=== PATIENT | female | born 1955 | race Caucasian/White ===

== ENCOUNTER → 2018-01-01 09:13 | Outpatient (CLI) | payer OTHER, SELFPAY ==
--- NOTE | 2018-01-01 09:15 | BI_ITS ---
MAMMOGRAPHY - BILATERAL SCREENING REASON FOR EXAM: Female, 62 years old. Routine annual screening examination. PERTINENT HISTORY: Non-contributory. TECHNIQUE: Digital bilateral breast taz (3D mammographic acquisition) in the CC and MLO projections. 2-D mediolateral oblique (MLO) and craniocaudad (CC) views of both breasts were obtained. CAD: Full Field Digital Mammography with Computer Added Detection was performed. COMPARISON: Comparison is made with prior study dated December 31, 2016 and January 25, 2016. FINDINGS: Breast Composition: There are scattered areas of fibroglandular density. There are no dominant masses or suspicious calcifications. No other significant abnormalities are identified. There has been no significant change since the prior study. BI/SCREENING MAMM (CAD), BILAT IMPRESSION: Stable bilateral screening mammogram. Yearly follow-up mammogram recommended. (A) ASSESSMENT CATEGORY: BIRADS Category 1: Negative. A letter regarding these results will be sent to the patient by the facility within 30 days. Approximately 10% of breast cancers are not detected by mammography. A normal mammogram should not delay biopsy of a clinically suspicious abnormality. [id number] Electronically Signed: Olegario Yang MD at 9:53 EDT Tel [phone], Service support ,
== END ==
PROVIDERS: Family Provider Internal Medicine; PCP Internal Medicine; Visit Provider Internal Medicine
DX: Z12.31 Encounter for screening mammogram for malignant neoplasm of breast (principal)
CPT/HCPCS: 77063; 77067

== ENCOUNTER → 2018-04-30 13:33 | Outpatient (CLI) | payer OTHER, SELFPAY ==
[2018-04-30 14:27] VITALS: BP 168/48; PULSE 59; RESP 14; O2SAT 100; BMI 25.0
--- NOTE | 2018-04-30 18:10 | CA.SCORE ---
Calcium Scoring Date of Study:: 04/30/18 Coronary Calcium Scoring: Coronary calcium score: 0.0 Conclusion: Coronary calcium score: 0.0 Results: The patient underwent high resolution CT imaging of the chest on 04/30/2018 with attention paid to the coronary arteries. The images were examined and analyzed for the presence and extent of coronary artery calcification using coronary calcium quantification software. The patient was boarded as tolerating the procedure well with no adverse complications. The coronary calcium score was reported at 0.0. Based upon pre-published reference tables/material a coronary calcium score of 0.0 would be considered to have less than 5% chance of presence of coronary artery disease and a very low cardiovascular disease risk. Impression: Coronary calcium score: 0.0 This note was generated with [employer] dictation software. It may contain incorrect words, spelling, and punctuation that were not noted in checking the note before signing.
== END ==
PROVIDERS: Family Provider Internal Medicine; PCP Internal Medicine; Visit Provider Internal Medicine
DX: E78.00 Pure hypercholesterolemia, unspecified (principal); R74.8 Abnormal levels of other serum enzymes; R79.89 Other specified abnormal findings of blood chemistry
CPT/HCPCS: 75571; 76380

== ENCOUNTER → 2018-09-23 08:59 | Outpatient (CLI) | payer MEDICARE, BC, SELFPAY ==
--- NOTE | 2018-09-23 09:04 | US_ITS ---
STUDY: ABDOMINAL ULTRASOUND -LIMITED REASON FOR VISIT: Female, 63 years old. Splenomegaly. TECHNIQUE: Ultrasound evaluation of the left upper quadrant was performed with real-time and static hernandez-scale imaging. TECHNICAL QUALITY: Adequate. COMPARISON: None available at the time of dictation. FINDINGS: Spleen measures 9.8 x 3.6 x 3.3 cm which is within normal limits. Normal echotexture. No masses. Left kidney measures 9.9 x 4.6 x 5.3 cm without hydronephrosis. Renal cortex 1.7 cm. No masses or cysts. US/Spleen IMPRESSION: Normal spleen. Normal left kidney. Electronically Signed: Eleuterio Beaver MD at 7:36 EST , Service support ,
--- OUTSIDE RECORDS SUMMARY | 2018-11-25 05:33 | XMS RPT_ITS | Continuity of Care Document ---
:1955 Author Organization [facility] Address [address] [place] [address] Phone Care Team Providers Name Role Phone Yolanda Gomez DO Unavailable Carla DILLON MD , Oseas Ramey Unavailable OLMAN King Unavailable Unavailable Hoa STONE, Rajani Camarillo Unavailable Chico Arizmendi Unavailable Unavailable Unavailable Unavailable Problems Name Dates Details Abnormal laboratory test (R89.9, 796.4) Comments: MPO and Vitamin b12 high so inflammation ADMA up so endothelial ;dysfucntion recommend CCTA and BV screening will check sed rate and labs. Status: Active Abnormal urine (R82.90, 791.9) Comments: little wbc and blood. will recheck next time no signs and symptoms or bacteria. ? vaginitis or caffiene willrecheck Status: Active BMI 25.0-25.9,adult (Z68.25, V85.21) Comments: 25.63 Status: Active BMI 26.0-26.9,adult (Z68.26, V85.22) Status: Active Carotid stenosis (I65.29, 433.10) Comments: 8-18 mild to moderate. needs aspirin and statin. Status: Active Current nonsmoker (Renamed from Current non-smoker) (Z78.9, V49.89) Comments: vegetarian Status: Active Dyspareunia in female (N94.10, 625.0) Comments: use coconut oil no estrogen cream with above if not work and BRCA negative then could consider estrogen cream. doing better Status: Active Encounter for general adult medical examination without abnormal findings (Z00.00, V70.9) Comments: 10-21-17:[facility] exam: pap 9-16 good recheck 3 years, flu up to date,tdap done. will get new shingles vaccine, mammoand BD=-, A1c=5.4%, BMI=25, Dweqcuzisqy=4248 (Karlos) re check 2019 myriad negative. recommend calcium 600 mg a day pneumovax and prevnar 13 at 63 yo. Hep C atb neg 10-18 Status: Active Encounter for gynecological examination with abnormal finding (Z01.411, V72.31) Comments: 10-22-16:[facility] exam: pap 9-16 good recheck 3 years, flu up to date, , mammo=-2016, BD=due 01-17, A1c=5.9%. MOCA=23/30, BMI=25.29, Dqqudriitbr=7469 (Karlos). recommedn calcium 600 mg a day pneu movax and prevnar 13 due. shjingrix told get at pharmacy. Hep C atb neg 10-18 Status: Active Family history of BRCA gene positive (Z84.81, V18.9) Comments: neg myriad genetics Status: Active Family history of dementia (Z81.8, V17.2) Comments: handout given Status: Active Family history of neoplasm of ovary (Z87.898, V18.7) Status: Active Hyperkalemia (E87.5, 276.7) Status: Active Mild hyperlipidemia (E78.5, 272.4) Comments: reveiwed with patient recent tests and better HDL LDL stillup with apoBelevated. ADMA slightlly up refuse statins switching over more whole grain.8-18 CCTA 0 carotids 8-18 mild to moderate. Status: Active Osteopenia (M85.80, 733.90) Comments: done - bd Status: Active Postmenopausal (Z78.0, V49.81) Status: Active Shoulder pain, left (M25.512, 719.41) Comments: in trapezius knot nsadis biofreeze neck stretches given. massage heat help if not better in 7-10 days to PT. will have family massage. Status: Active Vitamin D deficiency (E55.9, 268.9) Comments: better than was last year now just need otc vit D Status: Active Medications Name Dates Details Aspirin 81 MG Oral Tablet Delayed Release Active 1 qd (81 MG) Vitamin B12 1000 MCG Oral Tablet Extended Release 1 (one) Tablet Tablet daily for 0 days Quantity: 30 {Tablet} Refills: 0 Ordered:21-Apr-2018 OLMAN King Start : 20-Oct-2017 Active Vitamin D3 Super Strength 2000 UNIT Oral Capsule 1 (one) Capsule Capsule in am for 0 days Quantity: 30 {Capsule} Refills: 0 Ordered:21-Apr-2018 OLMAN King Start : 20-Oct-2017 Active CM Core 1 qd Inactive Lipitor 10 MG Oral Tablet 1 (one) Tablet qd for 0 days Quantity: 30 {Tablet} Refills: 6 Ordered:05-May-2018 Rajani Camara MD Start : 05-May-2018 End : 05-May-2018 Inactive Comments:myalgia patient could not tolerate Vitamin D (Ergocalciferol) 00859 UNIT Oral Capsule 1 (one) Capsule q monthly for 0 days Quantity: 12 {Capsule} Refills: 3 Ordered:21-Apr-2018 OLMAN King Start : 24-Jan-2017 End : 21-Apr-2018 Inactive Metoprolol Tartrate 25 MG Oral Tablet uad Tablet one at 6pm night before test and one @6am on morning of test for 0 days Quantity: 2 {Tablet} Refills: 0 Ordered:17-Sep-2018 Chico Arizmendi Start : 21-Apr-2018 End : 17-Sep-2018 Discontinued Allergies and Adverse Reactions Name Dates Details No Known Allergies (Allergy) Onset: 28-May-2016 Status: Active Past Medical History Name Dates Details Abdominal pain, acute, left lower quadrant (Renamed from Acute abdominal pain in left lower quadrant) (R10.32, 789.04) Comments: had colonscopy papnegative US good Status: Resolved as of 01-Jul-2016 Encounter for screening mammogram for breast cancer (Renamed from Encounter for screening mammogram for malignant neoplasm of breast) (Z12.31, V76.12) Status: Resolved as of 21-Oct-2017 Hearing loss of right ear due to cerumen impaction (H61.21, 389.8) Status: Inactive as of 29-Jan-2017 Menopausal state (N95.1, 627.2) Status: Inactive as of 29-Jan-2017 Need for hepatitis C screening test (Z11.59, V73.89) Status: Inactive as of 29-Jan-2017 Need for prophylactic vaccination and inoculation against influenza (Renamed from Need for immunization against influenza) (Z23, V04.81) Status: Inactive as of 20-Jan-2017 Need for Tdap vaccination (Renamed from Need for ugohabkzxp-uoprxgb-wxwhqrqoh (Tdap) vaccine, adult/adolescent) (Z23, V06.1) Status: Inactive as of 20-Jan-2017 Pulsatile abdominal mass (R19.00, 789.30) Comments: us aorta negative. Status: Resolved as of 20-Jan-2017 Procedures Procedure Dates Details Bone Density Study Completed Comments: 2013 Colonoscopy, Screening Completed Comments: 05-14-2010 repeat 10 years ([facility]) Mammogram, Screening Completed Comments: 01-25-16 Pap Smear Completed Comments: Tubal ligation Completed bobby sykes 90's Completed Date Value Details 30-Apr-[address] w/CCTA Result: Comments: See Note; NOTES: [facility] Imaging Services [address] [place] [address] w/CCTA MR#: [id number] Acct: [id number] Name: ROSA LIMON Rep #: [id number] : 1955 F 63 From: Olegario Yang MD PCP: Rajani Camara MD Status: REG CLI Study: Limited Chest CT w/CCTA Date of Exam: 04/30/18 Exam# [id number] Ordering Dr: Rajani Camara MD STUDY: CT CHEST WITHOUT CONTRAST REASON FOR EXAM: Female, 63 years old. Elevated cholesterol. Calcium scoring examination. This is an over read of the chest excluding the coronary arteries. RADIATION DOSAGE (If Supplied By Facility): CTDIvol = ( 12.19 ) mGy, DLP = ( 219.42 ) mGycm TECHNIQUE: Transaxial imaging was performed without the administration of intravenous contrast material. Individualized dose optimization techniques were used for this CT. COMPARISON: None. FINDINGS: The lungs are normal. There is no demonstrated pleural abnormality. Normal heart and p ericardium. Normal mediastinum. Normal hilar regions. Normal unenhanced pulmonary arteries. There is atherosclerotic calcification of the aortic arch Normal osseous structures. There is no demonstrat ed abnormality of the visualized upper abdomen. CT/Limited Chest CT w/CCTA IMPRESSION: No acute abnormality is seen. Electronically Signed: Toshia Yang MD at 13:32 EDT Tel [phone], Service support , CC: Rajani Camara MD [place] Tier: Signed 01-Jan-2018 SCREENING MAMM (CAD), BILAT Result: Comments: See Note; NOTES: [facility] Imaging Services [address] [place] [id number] SCREENING MAMM (CAD), BILAT MR#: [id number] Acct: [id number] Name: ROSA LIMON Rep #: [id number] : 1955 F 62 From: Olegario Yang MD PCP: Rajani Camara MD Status: [facility] Study: SCREENING MAMM (CAD), BILAT Date of Exam: 01/01/18 Exam# [id number] Ordering Dr: Rajani Camara MD MAMMOGRAPHY - BILATERAL SCREENING REASON FOR EXAM: Female, 62 years old. Routine annual screening examination. PERTINENT HISTORY: Non-contributory. TECHNIQUE: Digital bilateral breast taz (3D mamm ographic acquisition) in the CC and MLO projections. 2-D mediolateral oblique (MLO) and craniocaudad (CC) views of both breasts were obtained. CAD: Full Field Digital Mammography with Computer Added Det ection was performed. COMPARISON: Comparison is made with prior study dated December 31, 2016 and January 25, 2016. FINDINGS: Breast Composition: There are scattered areas of fibroglandular density. There are no dominant masses or suspicious calcifications. No other significant abnormalities are identified. There has been no significant change since the prior study. BI/SCREENING MAMM (CAD), BILAT IMPRESSION: Stable bilateral screening mammogram. Yearly follow-up mammogram recommended. (A) ASSESSMENT CATEGORY: BIRADS Category 1: Negative. A letter regarding these results will be sent to the patient by the facility within 30 days. Approximately 10% of breast cancers are not d etected by mammography. A normal mammogram should not delay biopsy of a clinically suspicious abnormality. [id number] Electronically Signed: Olegario Yang MD at 9:53 EDT Tel [phone], S [place] support , CC: Rajani Camara MD [place] Tier: Signed 28-Jan-2017 Dexa Bone Density Study (HP) Result: Comments: See Note; NOTES: [facility] Imaging Services [address] [place] [id number] Verdana 4d Dexa Bone Density Study (HP) MR#: [id number] Acct: [id number] Name: JACQUIE LIMON GEORGINA Wylie Rep #: [id number] : 1955 F 62 From: Olegario Yang MD PCP: Rajani Camara MD Status: [facility] Study: Dexa Bone Density Study (HP) Date of Exam: 01/28/17 Exam# [id number] Ordering Dr: Rajani Cota MD STUDY: DUAL ENERGY X-RAY ABSORPTIOMETRY / DXA REASON FOR EXAM: Female, 62 years old. The patient is postmenopausal. TECHNIQUE: Bone Mineral Density (BMD) measurements of lumbar spine an d bilateral hips were obtained. COMPARISON: Comparison is made with prior study dated July 05, 2009. FINDINGS: Lumbar Spine (L1-L4): g/cm2 (1.007) / T-score (-1 .4) / Z-score (0.1) Findings are suggestive of osteopenia with a moderate fracture risk. Left Femur Total: g/cm2 (0.781) / T-score (-1.8) / Z-score (-0.7) Left Femoral Neck: g/cm2 (0.811) / T-score (-1 .6) / Z-score (-0.2) Right Femur Total: g/cm2 (0.823) / T-score (-1.5) / Z-score (-0.3) Right Femoral Neck: g/cm2 (0.861) / T-score (-1.3) / Z-score (0.1) The T-Scores on the most recent prior examinat ion were: Lumbar Spine (L1-L4): There has been worsening of bone density since the previous examination. Left Femur Total: which represents a worsening of 16%. Right Femur Total: which represents a wo rsening of 13.7%. HPBD/Dexa Bone Density Study (HP) IMPRESSION: The patient is considered osteopenic as outlined below according to World Yemi O rganization (WHO) criteria with a moderate fracture risk. There has been worsening of bone density since the previous examination. Reference Information: The T-scor e is the number of standard deviations above or below the standard which is normal for young adults at their peak bone mineral density. The World Health Organization (WHO) interprets the T-scores as fol lows: Above -1 Normal bone density Between -1 and -2.5 Osteopenia Equal to / or below -2.5 Osteoporosis As a practical clinical guideline, osteopenia may be graded as follows: Mild -1 through -1.5 Mod erate -1.6 through -2.0 Severe -2.1 through -2.4 The Z-score is the number of standard deviations above or below age-matched controls. A Z-score of less than -1.5 would be considered abnormal. Referen kali: 1. NIH Osteoporosis and Related Bone Diseases http://www.osteo.org 2. International Society for Clinical Densitometry http://www.iscd.org 3. National Osteoporosis Foundation http://www.nof.org Helen ctronically Signed: Olegario Yang MD at 9:34 EDT Tel [phone], Service support , CC: Rajani Camara MD [place] Tier: Signed 31-Dec-2016 SCREENING MAMM (CAD), BILAT Result: Comments: See Note; NOTES: [facility] Imaging Services [address] [place] [id number] Verdana 4d SCREENING MAMM (CAD), BILAT MR#: [id number] Acct: [id number] Name: VICKIE LIMON Rep #: [id number] : 1955 F 61 From: Olegario Yang MD PCP: Rajani Camara MD Status: REG CLI Study: SCREENING MAMM (CAD), BILAT Date of Exam: 12/31/16 Exam# [id number] Ordering Dr: Rajani Lopez i, MD MAMMOGRAPHY - BILATERAL SCREENING REASON FOR EXAM: Female, 61 years old. Routine annual screening examination. PERTINENT HISTORY: Non- contributory. TECHNIQUE: Digital bilateral breast to mo (3D mammographic acquisition) in the CC and MLO projections. 2-D mediolateral oblique (MLO) and craniocaudad (CC) views of both breasts were obtained. CAD: Full Field Digital Mammography with Compute r Added Detection was performed. COMPARISON: Comparison is made with prior outside examination dated January 25, 2016 and January 22, 2015. FINDINGS: Breast Composition: Th ere are scattered areas of fibroglandular density. There are no dominant masses or suspicious calcifications. No other significant abnormalities are identified. There has been no significant change si nce the prior study. HPBI/SCREENING MAMM (CAD), BILAT IMPRESSION: Stable bilateral screening mammogram. Yearly follow-up mammogram recommended. ( A) ASSESSMENT CATEGORY: BIRADS Category 1: Negative. A letter regarding these results will be sent to the patient by the facility within 30 days. Approximately 10% of breast cancers are not detected by mammography. A normal mammogram should not delay biopsy of a clinically suspicious abnormality. [id number] Electronically Signed: Olegario Yang MD a t 8:16 EDT Tel [phone], Service support , CC: Rajani Camara MD [place] Tier: Signed 23-Oct-2016 Aorta Result: Comments: See Note; NOTES: [facility] Imaging Services [address] [place] [address] Verdana 4d Aorta MR#: [id number] Acct: [id number] Name: ROSA LIMON Rep #: [id number] : 1955 F 61 From: Olegario Yang MD PCP: Rajani Camara MD Status: REG CLI Study: Aorta Date of Exam: 10/23/16 Exam# [id number] Ordering Dr: Rajani Camara MD PROCEDURES: ULTRASOUND AORTA R NHI FOR EXAM: Female, 61 years old. History of pulsatile abdominal mass. TECHNIQUE: Ultrasound evaluation of the aorta was performed with real-time and static hernandez-scale imaging. COMPARISON: None. _ FINDINGS: There is no elongation or tortuosity of the abdominal aorta. Aorta measures: Proximal 2.2 cm. Middle 1.6 cm. Distal 1.5 cm. Aorta measure transversely: Pro ximal 1.7 cm. Middle 1.3 cm. Distal 1.3 cm. Right iliac artery measures: 0.8 cm. Right iliac artery measure transversely: 0.8 cm. Left iliac artery measures: 1.0 cm. Left iliac artery measure transver sely: 0.6 cm. There is no demonstrated aneurysm.. US/Aorta IMPRESSION: Normal abdominal aorta. Electronically Signed: Olegario Yang MD 18/10/21 at 10:31 EST Tel [phone], Service support [phone], CC: Rajani Camara MD [place] Tier: Signed 30-May-2016 Duplex Arterial Flow Limited Result: Comments: See Note; NOTES: [facility] Imaging Services [address] [place] [address] [place] 4d Duplex Arterial Flow Limited MR#: [id number] Acct: [id number] Name: WILLIAMS LIMON [facility] A Rep #: [id number] : 1955 F 61 From: Olegario Yang MD PCP: Lavelle STONE,[place] Status: REG CLI Study: Duplex Arterial Flow Limited Date of Exam: 05/30/16 Exam# [id number] Ordering Dr: Rajani Leon MD STUDY: ULTRASOUND OF THE FEMALE PELVIS - COMPLETE REASON FOR EXAM: Female, 61 years old. Left lower quadrant pain. LMP: The patient is postmenopausal. TECHNIQUE: Transabdominal and Tr ansvaginal TECHNICAL QUALITY: Adequate. COMPARISON: None. FINDINGS: The uterus is anteverted and is in a midline position. The uterus measures 5.8 cm x 3.4 cm x 2. 3 cm. Normal uterine cervix. The endometrium measures 4.0 mm in thickness, and is hyperechoic. There is no demonstrated endometrial mass. There is no demonstrated myometrial mass. I.U.D. - The patient d oes not have an I.U.D. The right ovary is visualized. The right ovary measures 2.4 cm x 1.6 cm x 1.4 cm. There is no right ovarian cyst or ovarian mass. There is no visualized right adnexal mass or com plex lesion. There is normal arterial and normal venous vascularity. The left ovary is visualized. The left ovary measures 2.1 cm x 1.5 cm x 1.1 cm. There is no left ovarian cyst or ovarian mass. There is no visualized left adnexal mass or complex lesion. There is normal arterial and normal venous vascularity. There is no fluid in the cul-de-sac. -[id number] US/Duplex Arterial Flow Limited IMPRESSION: Normal female pelvis. Electronically Signed: Olegario Yang MD at 11:04 EDT Tel [phone], Service support [phone], Fax CC: Rajani Camara MD; Jamshid Valderrama MD [place] Tier: Signed 30-May-2016 Transvaginal Non- Result: Comments: See Note; NOTES: [facility] Imaging Services [address] [place] [id number] Verdana 4d Transvaginal Non- MR#: [id number] Acct: [id number] Name: AYLEEN LIMON Rep #: [id number] : 1955 F 61 From: Olegario Yang MD PCP: Jamshid Valderrama MD, Chi Status: REG CLI Study: Transvaginal Non- Date of Exam: 05/30/16 Exam# [id number] Ordering Dr: Rajani Camara MD STUDY: ULTRASOUND OF THE FEMALE PELVIS - COMPLETE REASON FOR EXAM: Female, 61 years old. Left lower quadrant pain. LMP: The patient is postmenopausal. TECHNIQUE: Transabdominal and Transvag inal TECHNICAL QUALITY: Adequate. COMPARISON: None. FINDINGS: The uterus is anteverted and is in a midline position. The uterus measures 5.8 cm x 3.4 cm x 2.3 cm. Normal uterine cervix. The endometrium measures 4.0 mm in thickness, and is hyperechoic. There is no demonstrated endometrial mass. There is no demonstrated myometrial mass. I.U.D. - The patient does no t have an I.U.D. The right ovary is visualized. The right ovary measures 2.4 cm x 1.6 cm x 1.4 cm. There is no right ovarian cyst or ovarian mass. There is no visualized right adnexal mass or complex l esion. There is normal arterial and normal venous vascularity. The left ovary is visualized. The left ovary measures 2.1 cm x 1.5 cm x 1.1 cm. There is no left ovarian cyst or ovarian mass. There is no visualized left adnexal mass or complex lesion. There is normal arterial and normal venous vascularity. There is no fluid in the cul-de-sac. US/Transvaginal Non- IMPRESSION: Normal female pelvis. Electronically Signed: Olegario Yang MD at 11:04 EDT Tel [phone], Service support [phone], CC: Rajani Camara MD; Jamshid Valderrama MD [place] Tier: Signed 30-May-2016 Pelvic (Non ) Result: Comments: See Note; NOTES: [facility] Imaging Services [facility] [place] [address] Verdana 4d Pelvic (Non ) MR#: [id number] Acct: [id number] Name: ROSA LIMON Rep #: [id number] : 1955 F 61 From: Olegario Yang MD PCP: Lavelle STONE,Jamshid Cruz Status: REG CLI Study: Pelvic (Non ) Date of Exam: 05/30/16 Exam# [id number] Ordering Dr: Rajani Camara MD STUDY: ULTRASOUND OF THE FEMALE PELVIS - COMPLETE REASON FOR EXAM: Female, 61 years old. Left lower quadrant pain. LMP: The patient is postmenopausal. TECHNIQUE: Transabdominal and Transvaginal TE CHNICAL QUALITY: Adequate. COMPARISON: None. FINDINGS: The uterus is anteverted and is in a midline position. The uterus measures 5.8 cm x 3.4 cm x 2.3 cm. Normal u terine cervix. The endometrium measures 4.0 mm in thickness, and is hyperechoic. There is no demonstrated endometrial mass. There is no demonstrated myometrial mass. I.U.D. - The patient does not have a n I.U.D. The right ovary is visualized. The right ovary measures 2.4 cm x 1.6 cm x 1.4 cm. There is no right ovarian cyst or ovarian mass. There is no visualized right adnexal mass or complex lesion. T here is normal arterial and normal venous vascularity. The left ovary is visualized. The left ovary measures 2.1 cm x 1.5 cm x 1.1 cm. There is no left ovarian cyst or ovarian mass. There is no visuali zed left adnexal mass or complex lesion. There is normal arterial and normal venous vascularity. There is no fluid in the cul-de-sac. US/Pelvi c (Non ) IMPRESSION: Normal female pelvis. Electronically Signed: Olegario Yang MD at 11:04 EDT Tel [phone], Service support [phone], CC: Rajani Camara MD; Jamshid Valderrama MD [place] Tier: Signed Family History Unknown Family Member Name Dates Details Father Comments: Alcoholism, prostate cancer, Status: Active First Degree Relatives Comments: Maternal aunt ovarian cancer Status: Active Maternal Grandfather Comments: Status: Active Maternal Grandmother Comments: Status: Active Mother Comments: Ovarian Cancer, Type II diabetes, HTN, hyperlipidemia Status: Active myriad genetic negative Status: Active no children Status: Active Paternal Grandfather Comments: arthritis Status: Active Paternal Grandmother Comments: dementia Status: Active Sister 1 Comments: type II diabetes, recent labs show possible liver problem and hematuria dx unknown at this time Status: Active Sister 2 Comments: uterine cancer/pelvic disease Status: Active Social History Name Dates Details Caffeine Use Comments: 1 Pepsi qd Status: Active 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 Comments: walk 8 miles at work. she does home exercise video daily Status: Active Living Situation Comments: lives with spouse, work so not have children. ira [phone] or [phone] Status: Active No Drug Use Status: Active nutrition Comments: vegetarian. get protien in nuts, legumes an beans. some dairy Status: Active Tobacco Use: Never smoker. Status: Active Smoking Status Name Dates Details Never smoker Vital Signs Date Test Result Details :31 Pulse 79 /min Comments: Pattern: Regular Respiration Rate 18 /min Comments: Pattern: Unlabored O2 SAT 99 % Comments: Room air BP Systolic 158 mm[Hg] Comments: Patient Position: Sitting; Cuff Location: Left Arm; Cuff Size: Standard BP Diastolic 78 mm[Hg] Comments: Patient Position: Sitting; Cuff Location: Left Arm; Cuff Size: Standard Weight 156.375 lb Height 65 in Body Mass Index Calculated 26.02 kg/m2 Body Surface Area Calculated 1.78 m2 :29 Temperature 97.9 f Comments: Method: Temporal Pulse 76 /min Comments: Pattern: Regular Respiration Rate 18 /min Comments: Pattern: Unlabored O2 SAT 98 % Comments: Room air BP Systolic 160 mm[Hg] Comments: Patient Position: Sitting; Cuff Location: Left Arm; Cuff Size: Standard BP Diastolic 80 mm[Hg] Comments: Patient Position: Sitting; Cuff Location: Left Arm; Cuff Size: Standard Weight 155 lb Height 65 in Body Mass Index Calculated 25.79 kg/m2 Body Surface Area Calculated 1.78 m2 :13 Pulse 72 /min Comments: Pattern: Regular Respiration Rate 18 /min Comments: Pattern: Unlabored O2 SAT 99 % Comments: Room air BP Systolic 140 mm[Hg] Comments: Patient Position: Sitting; Cuff Location: Left Arm; Cuff Size: Standard BP Diastolic 76 mm[Hg] Comments: Patient Position: Sitting; Cuff Location: Left Arm; Cuff Size: Standard Weight 150.25 lb Height 65 in Body Mass Index Calculated 25 kg/m2 Body Surface Area Calculated 1.75 m2 :26 Temperature 97.6 f Comments: Method: Temporal Pulse 74 /min Comments: Pattern: Regular Respiration Rate 20 /min Comments: Pattern: Unlabored O2 SAT 99 % Comments: Room air BP Systolic 144 mm[Hg] Comments: Patient Position: Sitting; Cuff Location: Left Arm; Cuff Size: Standard BP Diastolic 86 mm[Hg] Comments: Patient Position: Sitting; Cuff Location: Left Arm; Cuff Size: Standard Weight 154 lb Height 65 in Body Mass Index Calculated 25.63 kg/m2 Body Surface Area Calculated 1.77 m2 :56 Temperature 97.6 f Comments: Method: Temporal Pulse 68 /min Comments: Pattern: Regular Respiration Rate 20 /min Comments: Pattern: Unlabored O2 SAT 97 % Comments: Room air BP Systolic 150 mm[Hg] Comments: Patient Position: Sitting; Cuff Location: Left Arm; Cuff Size: Standard BP Diastolic 90 mm[Hg] Comments: Patient Position: Sitting; Cuff Location: Left Arm; Cuff Size: Standard Weight 154 lb Height 65 in Body Mass Index Calculated 25.63 kg/m2 Body Surface Area Calculated 1.77 m2 :06 Temperature 97.9 f Comments: Method: Temporal Pulse 70 /min Comments: Pattern: Regular Respiration Rate 20 /min Comments: Pattern: Unlabored O2 SAT 98 % Comments: Room air BP Systolic 140 mm[Hg] Comments: Patient Position: Sitting; Cuff Location: Left Arm; Cuff Size: Standard BP Diastolic 80 mm[Hg] Comments: Patient Position: Sitting; Cuff Location: Left Arm; Cuff Size: Standard Weight 152 lb Height 65 in Body Mass Index Calculated 25.29 kg/m2 Body Surface Area Calculated 1.76 m2 :35 Temperature 97.6 f Comments: Method: Temporal Pulse 74 /min Comments: Pattern: Regular Respiration Rate 18 /min Comments: Pattern: Unlabored O2 SAT 98 % Comments: Room air BP Systolic 128 mm[Hg] Comments: Patient Position: Sitting; Cuff Location: Left Arm; Cuff Size: Standard BP Diastolic 80 mm[Hg] Comments: Patient Position: Sitting; Cuff Location: Left Arm; Cuff Size: Standard Weight 158 lb Height 66 in Body Mass Index Calculated 25.5 kg/m2 Body Surface Area Calculated 1.81 m2 88-Ufq-388604:52 Temperature 97 f Comments: Method: Temporal Pulse 74 /min Comments: Pattern: Regular Respiration Rate 20 /min Comments: Pattern: Unlabored O2 SAT 99 % Comments: Room air BP Systolic 124 mm[Hg] Comments: Patient Position: Sitting; Cuff Location: Left Arm; Cuff Size: Standard BP Diastolic 80 mm[Hg] Comments: Patient Position: Sitting; Cuff Location: Left Arm; Cuff Size: Standard Weight 158 lb Height 66 in Body Mass Index Calculated 25.5 kg/m2 Body Surface Area Calculated 1.81 m2 Results Date Description Value Details 23-Srv-901013:36 METABOLIC PANEL, Comments: PATIENT WAS FASTINGPERFORMED BY: BN [facility] Zbecihreyz6791 [facility] [id number] BY: CB [facility] Egbqrw7217 [facility] [id number] COMPREHENSIVE ([id number]) ALT (SGPT) 11 [iU]/L (Normal) Range: 0-32 AST (SGOT) 17 [iU]/L (Normal) Range: 0-40 Alkaline Phosphatase 106 [iU]/L (Normal) Range: 39-117 Bilirubin, Total 0.3 mg/dL (Normal) Range: 0.0-1.2 A/G Ratio 1.8 (Normal) Range: 1.2-2.2 Globulin, Total 2.6 g/dL (Normal) Range: 1.5-4.5 Albumin 4.8 g/dL (Normal) Range: 3.6-4.8 Protein, Total 7.4 g/dL (Normal) Range: 6.0-8.5 Calcium 10.3 mg/dL (Normal) Range: 8.7-10.3 Carbon Dioxide, Total 23 mmol/L (Normal) Range: 20-29 Chloride 104 mmol/L (Normal) Range: 96-106 Potassium 5.5 mmol/L (Abnormal) Range: 3.5-5.2 Sodium 143 mmol/L (Normal) Range: 134-144 BUN/Creatinine Ratio 13 (Normal) Range: 12-28 eGFR If Africn Am 109 mL/min/1.73 (Normal) eGFR If NonAfricn Am 94 mL/min/1.73 (Normal) Creatinine 0.63 mg/dL (Normal) Range: 0.57-1.00 BUN 8 mg/dL (Normal) Range: 8-27 Glucose 98 mg/dL (Normal) Range: 65-99 03-Yva-210981:36 LIPOPROTEIN, BLD, BY NMR Comments: PATIENT WAS FASTINGPERFORMED BY: BN [facility] Kgxnffjuxa0501 [facility] [id number] BY: CB [facility] Fabnak0503 [facility] [id number] ([id number]) LP-IR Score 50 (Abnormal) Comments: INSULIN RESISTANCE MARKER <--Insulin Sensitive Insulin Resistant--> Percentile in Reference PopulationInsulin Resistance ScoreLP-IR Score Low 25th 50th 75th High <27 27 45 63 >63LP-IR Score is inaccurate if patient is non-fasting. .The LP-IR score is a laboratory developed i [facility] that has beenassociated with insulin resistance and diabetes risk and should beused as one component of a physician's clinical assessment. TheLP-IR score listed above has not been cleared by the [place] Food andDrug Administration. LDL Size 20.9 nm (Normal) Comments: INTERPRETATIVE INFORMATION PARTICLE CONCENTRATION AND SIZE <--Lower CVD Risk Highe r CVD Risk--> LDL AND HDL PARTICLES Percentile in Reference Population HDL-P (total) High 75th 50th 25th Low >34.9 34.9 30.5 26.7 <26.7 . Small LDL-P Low 25th 50th 75th High <117 117 527 839 >839 . LDL Size <-Large (Pattern A)-> <-Small (Pattern B)-> 23.0 20.6 20.5 19.0 Small LDL-P and LDL Size are associated with CVD risk, but not afterLDL-P is taken into account. .These assays were developed and their performance characteristicsdetermined by [facility]. These assays have not been cleared by [place] Food and Drug Administration. The clinical utility of theselaboratory values have not been fully established. Small LDL-P 801 nmol/L (Abnormal) HDL-P (Total) 41.4 umol/L (Normal) Cholesterol, Total 246 mg/dL (Abnormal) Range: 100-199 Triglycerides 96 mg/dL (Normal) Range: 0-149 HDL-C 65 mg/dL (Normal) LDL-C 162 mg/dL (Abnormal) Range: 0-99 Comments: . Optimal < 100 Above optimal 100 - 129 Borderline 1 30 - 159 High 160 - 189 Very high > 189 .LDL-C is inaccurate if patient is non-fasting. LDL-P 2083 nmol/L (Abnormal) Comments: Low < 1000 Moderate 1000 - 1299 Borderline-High 1300 - 1599 High 1600 - 2000 Very High > 2000 33-Kyw-283839:36 CALCIFIDIOL (57281) VIT D Comments: PATIENT WAS FASTINGPERFORMED BY: [facility] [address] [id number] BY: CB [facility] Incgid6331 [facility] [id number] 25 Vitamin D, 25-Hydroxy 19.1 ng/mL (Abnormal) Range: 30.0-100.0 Comments: Vitamin D deficiency has been defined by the [place] ofMedicine and an Endocrine Society practice guideline as alevel of serum 25-OH vitamin D less than 20 ng/mL (1,2).The Endocrine Society went on to further define vitamin Dinsufficiency as a level between 21 and 29 ng/mL (2).1. IOM ([place] of Medicine). 2010. Dietary reference intakes for calcium and D. [place]: The National Academies Press.2. Jose MF, Ciera NC, Scar SANTAMARIA, et al. Evaluation, treatment, and prevention of vitamin D deficiency: an Endocrine Society clinical practice guideline. JCEM. 2010; 96(7):1911-30. 89-Age-413204:27 Urinalysis, Office (79284) UA - NITRITE Negative (Normal) UA - LEUKOCYTE ESTERASE Trace (Normal) URINE UROBILINGN KEN TIMED Normal mg/dL (Normal) UA - PROTEIN Negative mg/dL (Normal) UA - SPECIFIC GRAVITY 1.010 (Normal) UA - KETONES Negative mg/dL (Normal) UA - BILIRUBIN Negative (Normal) UA - GLUCOSE Negative (Normal) 26-Rap-145199:46 SPEP (82968) Comments: PATIENT WAS FASTINGPERFORMED BY: REBIScan[address] [id number] BY: REBIScanMiners' Colfax Medical CenterCgxrnf6613 [facility] [id number] Please note: SPRCS (Normal) Comments: Protein electrophoresis scan will follow via computer, mail, orcourier delivery. A/G Ratio 1.6 (Normal) Range: 0.7-1.7 Globulin, Total 2.5 g/dL (Normal) Range: 2.2-3.9 M-Adams Not Observed g/dL (Normal) Gamma Globulin 0.7 g/dL (Normal) Range: 0.4-1.8 Beta Globulin 1.0 g/dL (Normal) Range: 0.7-1.3 Ipxma-8-Vopisroe 0.7 g/dL (Normal) Range: 0.4-1.0 Coxoa-9-Abzwozrt 0.2 g/dL (Normal) Range: 0.0-0.4 Albumin 3.9 g/dL (Normal) Range: 2.9-4.4 Protein, Total, Serum 6.4 g/dL (Normal) Range: 6.0-8.5 13-Ogo-998434:46 Sed Rate Erythrocyte Comments: PATIENT WAS FASTINGPERFORMED BY: REBIScan[address] [id number] BY: REBIScanMiners' Colfax Medical CenterHhmlmr4003 [facility] [id number] ([id number]) Sedimentation Rate-Westergren 2 mm/h (Normal) Range: 0-40 12-Agw-957812:46 HEPATIC FUNCTION PANEL Comments: PATIENT WAS FASTINGPERFORMED BY: REBIScan[address] [id number] BY: REBIScanPascack Valley Medical CenterAawrrf9152 [facility] [id number] ([id number]) ALT (SGPT) 7 [iU]/L (Normal) Range: 0-32 AST (SGOT) 13 [iU]/L (Normal) Range: 0-40 Alkaline Phosphatase, S 84 [iU]/L (Normal) Range: 39-117 Bilirubin, Direct 0.11 mg/dL (Normal) Range: 0.00-0.40 Bilirubin, Total 0.4 mg/dL (Normal) Range: 0.0-1.2 Albumin, Serum 4.3 g/dL (Normal) Range: 3.6-4.8 01-Qqf-661295:46 LIPOPROTEIN, BLD, BY NMR Comments: PATIENT WAS FASTINGPERFORMED BY: BN [facility] Utfyaafeik2438 [facility] [id number] BY: CB [facility] Pffzld6807 [facility] [id number] ([id number]) LP-IR Score 34 (Normal) Comments: INSULIN RESISTANCE MARKER <--Insulin Sensitive Insulin Resistant--> Percentile in Reference PopulationInsulin Resistance ScoreLP-IR Score Low 25th 50th 75th High <27 27 45 63 >63LP-IR Score is inaccurate if patient is non-fasting. .The LP-IR score is a laboratory developed i [facility] that has beenassociated with insulin resistance and diabetes risk and should beused as one component of a physician's clinical assessment. TheLP-IR score listed above has not been cleared by the US Food andDrug Administration. LDL Size 20.9 nm (Normal) Comments: INTERPRETATIVE INFORMATION PARTICLE CONCENTRATION AND SIZE <--Lower CVD Risk Highe r CVD Risk--> LDL AND HDL PARTICLES Percentile in Reference Population HDL-P (total) High 75th 50th 25th Low >34.9 34.9 30.5 26.7 <26.7 . Small LDL-P Low 25th 50th 75th High <117 117 527 839 >839 . LDL Size <-Large (Pattern A)-> <-Small (Pattern B)-> 23.0 20.6 20.5 19.0 Small LDL-P and LDL Size are associated with CVD risk, but not afterLDL-P is taken into account. .These assays were developed and their performance characteristicsdetermined by [employer]. These assays have not been cleared by [place] Food and Drug Administration. The clinical utility of theselaboratory values have not been fully established. Small LDL-P 423 nmol/L (Normal) HDL-P (Total) 39.5 umol/L (Normal) Cholesterol, Total 189 mg/dL (Normal) Range: 100-199 Triglycerides 86 mg/dL (Normal) Range: 0-149 HDL-C 58 mg/dL (Normal) LDL-C 114 mg/dL (Abnormal) Range: 0-99 Comments: . Optimal < 100 Above optimal 100 - 129 Borderline 1 30 - 159 High 160 - 189 Very high > 189 .LDL-C is inaccurate if patient is non-fasting. LDL-P 1383 nmol/L (Abnormal) Comments: Low < 1000 Moderate 1000 - 1299 Borderline-High 1300 - 1599 High 1600 - 2000 Very High > 2000 69-Rwg-761836:46 CALCIFIDIOL (81368) VIT D Comments: PATIENT WAS FASTINGPERFORMED BY: [facility] [address] [id number] BY: CB [facility] Bmjetw7287 [facility] [id number] 25 Vitamin D, 25-Hydroxy 63.5 ng/mL (Normal) Range: 30.0-100.0 Comments: Vitamin D deficiency has been defined by the [place] ofMedicine and an Endocrine Society practice guideline as alevel of serum 25-OH vitamin D less than 20 ng/mL (1,2).The Endocrine Society went on to further define vitamin Dinsufficiency as a level between 21 and 29 ng/mL (2).1. IOM ([place] of Medicine). 2010. Dietary reference intakes for calcium and D. [place]: The National Academies Press.2. Jose MF, Ciera [place], Scar SANTAMARIA, et al. Evaluation, treatment, and prevention of vitamin D deficiency: an Endocrine Society clinical practice guideline. JCEM. 2010; 96(7):1911-30. 4-Fhy-197443:13 Methymalonic Acid, Serum Comments: PATIENT NOT FASTINGPERFORMED BY: Lab[place] 6370770 [facility] [id number] BY: [address] [id number] ([id number]) Methylmalonic Acid, Serum 145 nmol/L (Normal) Range: 0-378 5-Rvc-445989:13 Vitamin B-12 (cyanocobalamin) Comments: PATIENT NOT FASTINGPERFORMED BY: LabCoChristina [place] 0935170 [facility] [id number] BY: [address] [id number] ([id number]) Vitamin B12 1919 pg/mL (Abnormal) Range: 211-946 4-Sbd-757431:13 HEPATITIS C ANTIBODY Comments: PATIENT NOT FASTINGPERFORMED BY: LabCo[address] [id number] BY: [address] [id number] Inf ormation: NURSE DRAW (75429) Hep C Virus Ab <0.1 {s/co_ratio} (Normal) Range: 0.0-0.9 Comments: Negative: < 0.8 Indeterminate: 0.8 - 0.9 Positive: > 0.9 . The CDC recommends that a positive HCV antibody result be followed up with a HCV Nucleic Acid Amplification test (425548). :54 Thin prep Pap Comments: Source.............Cervix;EndocervixNo. of containers..01 CYTYC Thin Prep VialPATIENT NOT FASTINGPERFORMED BY: =G [facility] [address] [id number] BY: REBIScan (66130) (no STD rp [address] [id number] Information: [id number] testing) Age Gdln ACOG Testing 30-65 (Normal) 17-Rje-93027:54 IGP, Aptima HPV, Comments: Source.............Cervix;EndocervixNo. of containers..01 CYTYC Thin Prep VialPATIENT NOT FASTINGPERFORMED BY: =G [facility] [address] [place] [id number] BY: WB [facility] rfx 16/18,45 rp Dqvbaopnra501 [facility] [place] [id number] HPV Aptima Negative (Normal) Comments: This test detects fourteen high-risk HPV types (16/18/31/33/35/39/45/51/52/56/58/59/66/68) without differentiation. Note: PAPSMR (Normal) Comments: The Pap smear is a screening test designed to aid in the detection ofpremalignant and malignant conditions of the uterine cervix. It is not adiagnostic procedure and should not be used as the sole mean s of detectingcervical cancer. Both false-positive and false-negative reports do occur. .This liquid based ThinPrep(R) pap test w as screened with theuse of an image guided system. See Note . (Normal) DIAGNOSIS: SPRCS (Normal) Comments: NEGATIVE FOR INTRAEPITHELIAL LESION AND MALIGNANCY.CELLULAR CHANGES ASSOCIATED WITH ATROPHY ARE PRESENT.Satisfactory for evaluation. Endocervical component may not bedistinguished in cases of atrophy.Z 01.411Shana Hurtado Radio Engineering Teacher (ASCP) Plan of Care Name Dates Details Instructions BMI 26.0-26.9,adult : Eprescribed prescriptions (G8553) Indication: BMI 26.0-26.9,adult Shoulder pain, left : *Trigger Point Injections Indication: Shoulder pain, left Planned Observations Metabolic Panel, Basic (66226)Indication: Hyperkalemia On: 41-Ypf-315552:20 Request Comments: recheck in 4 weeks CALCIFIDIOL (85595) VIT D 25Indication: Vitamin D deficiency On: 54-Onj-497614:20 Request Comments: recheck in 4 weeks Lipid Panel (57350)Indication: Mild hyperlipidemia On: 72-Rcr-553188:19 Request Comments: recheck in 3 months Metabolic Panel, Comprehensive (32103)Indication: Mild hyperlipidemia On: 30-Wji-774892:19 Request Comments: recheck in 3 months T4, FREE (THYROXINE) (69924)Indication: Abnormal laboratory test On: :48 Request TSH (95735)Indication: Abnormal laboratory test On: :48 Request HEPATIC FUNCTION PANEL (74211)Indication: Mild hyperlipidemia On: :30 Request LIPOPROTEIN, BLD, BY NMR (26884)Indication: Mild hyperlipidemia On: :29 Request Planned Procedures SCREENING DIGITAL TOMOSYNTHESIS OF On: 20-Oct-2017 Intent BREAST (83638)By: Rajani Camara MD Comments: after - M DRAIN/INJECT MAJOR JOINT OR BURSA On: 22-May-2017 Intent (31979)By: Rajani Camara MD Comments: 2 cc marcaine lot # [id number] exp 09-01-2018 1 cc Kenalog lot [id number] exp left shoulder given per Dr. Camara DEXA SCAN AXIAL SKELETON (20195)By: On: 21-Jan-2017 Intent Rajani Camara MD Wax CurettesBy: Rajani Camara MD On: 22-Oct-2016 Intent Ear Irrigation (73579)By: Hoa On: 22-Oct-2016 Intent Rajani STONE Comments: Ear Irrigation performed on:r earAmount/color removed cerumen: dark brown, large amountOUtcome:clear and toleratedUsed wax curettes by DB Ultrasound - AortaBy: Hoa STONE, On: 22-Oct-2016 Intent Rajani [place]ar[place] SCREENING DIGITAL TOMOSYNTHESIS OF On: 22-Oct-2016 Intent BREAST ([id number])By: Rajani Camara MD MAMMOGRAM, SCREENING, BOTH BREAST On: 22-Oct-2016 Intent (07980)By: Rajani Camara MD TDAP VACCINE >7 IM (12454)By: On: 22-Oct-2016 Intent Rajani Camara MD Comments: Lot:[id number]:01/16/19Dose:prefilled 0.5mgRoute:IMSite: L DltdGiven By:FELECIA signed Bone Density StudyBy: Hoa STONE, On: 22-Oct-2016 Intent Rajani [place] Flu Vaccine (Quadrivalent) [id number]: On: 01-Jul-2016 Intent Rajani Camara MD Comments: FLUlot: [id number]:01/15site:Lt deltoidroute:IMdose:.5mlWILLIAMS MITTAL Ultrasound - PelvisBy: Hoa STONE, On: 28-May-2016 Intent Rajani [place] Instructions Name Dates Details BMI 26.0-26.9,adult : How to access health information online Indication: BMI 26.0-26.9,adult BMI 26.0-26.9,adult : How to access health information online - Detail Indication: BMI 26.0-26.9,adult BMI 26.0-26.9,adult : Patient Instructions Indication: BMI 26.0-26.9,adult Current nonsmoker (Renamed from Current non-smoker) : How to access health information online Indication: Current nonsmoker (Renamed from Current non-smoker) Current nonsmoker (Renamed from Current non-smoker) : How to access health information online - Detail Indication: Current nonsmoker (Renamed from Current non-smoker) Current nonsmoker (Renamed from Current non-smoker) : Patient Instructions Indication: Current nonsmoker (Renamed from Current non-smoker) Encounter for general adult medical examination without abnormal findings : How to access health information online Indication: Encounter for general adult medical examination without abnormal findings Encounter for general adult medical examination without abnormal findings : How to access health information online - Detail Indication: Encounter for general adult medical examination without abnormal findings Encounter for general adult medical examination without abnormal findings : Patient Instructions Indication: Encounter for general adult medical examination without abnormal findings BMI 25.0-25.9,adult : How to access health information online Indication: BMI 25.0-25.9,adult BMI 25.0-25.9,adult : How to access health information online - Detail Indication: BMI 25.0-25.9,adult BMI 25.0-25.9,adult : Patient Instructions Indication: BMI 25.0-25.9,adult BMI 25.0-25.9,adult : How to access health information online Indication: BMI 25.0-25.9,adult BMI 25.0-25.9,adult : How to access health information online - Detail Indication: BMI 25.0-25.9,adult BMI 25.0-25.9,adult : Patient Instructions Indication: BMI 25.0-25.9,adult Encounter for gynecological examination with abnormal finding : Patient Instructions Indication: Encounter for gynecological examination with abnormal finding Encounter for gynecological examination with abnormal finding : How to access health information online Indication: Encounter for gynecological examination with abnormal finding Encounter for gynecological examination with abnormal finding : How to access health information online - Detail Indication: Encounter for gynecological examination with abnormal finding Family history of BRCA gene positive : How to access health information online Indication: Family history of BRCA gene positive Family history of BRCA gene positive : How to access health information online - Detail Indication: Family history of BRCA gene positive Family history of BRCA gene positive : Patient Instructions Indication: Family history of BRCA gene positive Current nonsmoker (Renamed from Current non-smoker) : How to access health information online Indication: Current nonsmoker (Renamed from Current non-smoker) Current nonsmoker (Renamed from Current non-smoker) : How to access health information online - Detail Indication: Current nonsmoker (Renamed from Current non-smoker) Current nonsmoker (Renamed from Current non-smoker) : Patient Instructions Indication: Current nonsmoker (Renamed from Current non-smoker) Encounters Review On: 17-Sep-2018 9:29 Encounter Reason: Follow up for chronic medical issues - The patient feels well with no complaints, has good energy level and is sleeping well. Patient has been compliant with instructions. Current medication use: no pebbles e effects and compliant with dosing regimen. Patient sleeps 7 hours per night. Impact of disease: emotional impact-mild. Nutrition: balanced diet and supplemental vitamins. The medical issues the patien t is following up for include high cholesterol, osteoporosis/osteopenia and other (post menopausal, vitamin d def.).Encounter Diagnosis: Current nonsmoker (Renamed from Current non-smoker), BMI 26.0-26.9,adult [facility] Phone Encounter On: 05-May-2018 9:28 Encounter Diagnosis: Carotid stenosis End: 05-May-2018 9:33 [facility] Lab Order On: 24-Apr-2018 11:11 Encounter Diagnosis: Mild hyperlipidemia, Hyperkalemia, Vitamin D deficiency End: 24-Apr-2018 11:21 [facility] Phone Encounter On: 21-Apr-2018 9:22 Encounter Diagnosis: Abnormal laboratory test End: 21-Apr-2018 9:29 [facility] Office Visit On: 21-Apr-2018 8:28 Encounter Reason: Follow up for chronic medical issues - The patient feels well with no complaints, has good energy level and is sleeping well. Patient has been compliant with instructions. Current medication use: no pebbles End: 21-Apr-2018 9:08 e effects and compliant with dosing regimen. Patient sleeps 7 hours per night. Impact of disease: emotional impact-mild. Nutrition: balanced diet and supplemental vitamins. The medical issues the patien t is following up for include high cholesterol, osteoporosis/osteopenia and other (post menopausal, vitamin d def.).Encounter Diagnosis: BMI 25.0-25.9,adult, Current nonsmoker (Renamed from Current non-smoker), Family history of neoplasm of ovary, Postmenopausal, Vitamin D deficiency, Family history of BRCA gene positive, Dyspareunia in female, Family history of dementia, Encounter for gynecological examination with abnormal finding, Osteopenia, Mild hyperlipidemia, Abnormal laboratory test, Abnormal urine, Shoulder pain, left [facility] Office Visit On: 20-Oct-2017 7:50 Encounter Reason: [facility] PhysicalEncounter Diagnosis: Encounter for general adult medical examination without abnormal findings, BMI 25.0-25.9,adult, Encounter for gynecological examination with abnormal finding, Family history of BRCA gene positive, End: 22-Oct-2017 12:55 Current nonsmoker (Renamed from Current non-smoker), Osteopenia, Dyspareunia in female, Family history of dementia, Family history of neoplasm of ovary, Vitamin D deficiency, Mild hyperlipidemia, Postmenopausal, Abnormal laboratory test, Shoulder pain, left, Abnormal urine, Encounter for screening mammogram for breast cancer (Renamed from Encounter for screening mammogram for malignant neoplasm of breast) [facility] Office Visit On: 22-May-2017 13:26 Encounter Reason: Shoulder Sprain/Strain - The patient is right hand dominant. The injury involved the left shoulder. This occurred 4 day(s) ago at home and at work. The injury resulted from repetitive lifting and repeti End: 22-May-2017 13:58 tive use. Symptoms include pain, stiffness, tenderness and decreased range of motion. Note for Shoulder sprain/strain: last week it started friday in so much pain..... think overdid it. 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 advil takes edge off Encounter Diagnosis: BMI 25.0-25.9,adult, Current nonsmoker (Renamed from Current non-smoker), Shoulder pain, left [facility] Phone Encounter On: 29-Jan-2017 8:43 Encounter Diagnosis: Osteopenia End: 29-Jan-2017 8:44 [facility] Phone Encounter On: 21-Jan-2017 11:34 Encounter Diagnosis: Postmenopausal End: 21-Jan-2017 11:37 [facility] Annotation/Addendum On: 20-Jan-2017 11:27 Encounter Diagnosis: Abnormal urine End: 20-Jan-2017 11:28 [facility] Office Visit On: 20-Jan-2017 10:54 Encounter Reason: Follow up for chronic medical issues - The patient feels well with no complaints, has good energy level and is sleeping well. Patient has been compliant with instructions. Patient sleeps 7 hours per nig End: 20-Jan-2017 11:37 ht. Impact of disease: emotional impact-mild. Nutrition: balanced diet and supplemental vitamins. The medical issues the patient is following up for include high cholesterol and other (vitamin d def. ).Encounter Diagnosis: BMI 25.0-25.9,adult, Current nonsmoker (Renamed from Current non-smoker), Encounter for gynecological examination with abnormal finding, Dyspareunia in female, Vitamin D deficiency, Menopausal state, Family history of neoplasm of ovary, Family history of BRCA gene positive, Mild hyperlipidemia, Hearing loss of right ear due to cerumen impaction, Pulsatile abdominal mass, Family history of dementia, Abnormal laboratory test, Abnormal urine, Need for hepatitis C screening test [facility] Phone Encounter On: 23-Oct-2016 12:41 [facility] End: 23-Oct-2016 12:43 Office Visit On: 22-Oct-2016 8:05 Encounter Diagnosis: BMI 25.0-25.9,adult, Menopausal state, Encounter for gynecological examination with abnormal finding, Current nonsmoker (Renamed from Current non- smoker), Family history of BRCA gene positive, Family history of neoplasm of ovary End: 27-Oct-2016 8:30 , Need for hepatitis C screening test, Dyspareunia in female, Need for Tdap vaccination (Renamed from Need for grrmrzkcpk-kioyota-vuanxhooq (Tdap) vaccine, adult/adolescent), Vitamin D deficiency, Mild hyperlipidemia, Abnormal urine, Family history of dementia, Encounter for screening mammogram for breast cancer (Renamed from Encounter for screening mammogram for malignant neoplasm of breast), Pulsatile abdominal mass, Abnormal laboratory test, Hearing loss of right ear due to cerumen impaction [facility] Lab Order On: 08-Oct-2016 8:52 Encounter Diagnosis: Need for hepatitis C screening test End: 08-Oct-2016 8:54 [facility] Office Visit On: 01-Jul-2016 9:35 Encounter Reason: Follow up, Diagnostic Procedure Results - Diagnostic tests include ultrasound. Date: (05-30-16). Follow up visit with no current symptoms.Encounter Diagnosis: Family history of BRCA gene positive, End: 01-Jul-2016 13:19 Current nonsmoker (Renamed from Current non-smoker), Abdominal pain, acute, left lower quadrant (Renamed from Acute abdominal pain in left lower quadrant), BMI 25.0-25.9,adult, Encounter for gynecological examination with abnormal finding, Dyspareunia, Family history of neoplasm of ovary, Need for prophylactic vaccination and inoculation against influenza (Renamed from Need for immunization against influenza) [facility] Office Visit On: 28-May-2016 11:52 Encounter Reason: Transition into care - The patient is transitioning into care from another physician and a summary of care was reviewed .Encounter Diagnosis: Current nonsmoker (Renamed from Current non-smoker), BMI 25.0-25.9,adult, End: 28-May-2016 12:52 Abdominal pain, acute, left lower quadrant (Renamed from Acute abdominal pain in left lower quadrant), Encounter for gynecological examination with abnormal finding, Family history of BRCA gene positive, Family history of neoplasm of ovary, Dyspareunia [facility] Payers MedicareAnthem/SupplementRosa Limon; a guarantor
--- OUTSIDE RECORDS SUMMARY | 2018-11-25 05:34 | XMS RPT_ITS | Continuity of Care Document ---
:1955 Author Organization [facility] Address [address] [facility] [address] [place] [address] Phone Care Team Providers Name Role Phone Yolanda Gomez DO Unavailable Carla DILLON MD , Oseas Ramey Unavailable Chico Arizmendi Unavailable Unavailable Unavailable Unavailable [...] Status: Active Carotid stenosis (I65.29, 433.10) Comments: cta 8/18 mild to moderate- doesnt tolerate statin Status: Active Current nonsmoker (Renamed from Current non-smoker) (Z78.9, V49.89) Comments: vegetarianstrict vegetarian diet-- code: Z78.9 for billing for B12 level Status: Active Dyspareunia in female (N94.10, 625.0) [...] new shingles vaccine, mammoand BD=-, A1c=5.4%, BMI=25, Hfktwizuwqv=4551 (Karlos) re check 2019 myriad negative. recommend calcium 600 mg a day pneumovax and prevnar 13 at 65 yo. Hep C atb neg 10-18 Status: Active Encounter for gynecological examination with abnormal finding (Z01.411, V72.31) Comments: 10-22-16:[facility] exam: pap 9-16 good recheck 3 years, flu up to date, , mammo=-2016, BD=due 01-17, A1c=5.9%. MOCA=23/30, BMI=25.29, Vjsxyrtfmmj=0689 (Karlos). recommedn calcium 600 mg a day [...] Status: Active Mild hyperlipidemia (E78.5, 272.4) Comments: 8-18 CCTA 0 carotids 8-18 mild to moderate.doing cm core -- stiop whille trying crestor--- uncontrolled Status: Active Osteopenia (M85.80, 733.90) Comments: done - bd Status: Active Postmenopausal (Z78.0, V49.81) Status: Active Shoulder pain, left (M25.512, 719.41) Comments: in trapezius knot nsadis biofreeze neck stretches given. massage heat help if not better in 7-10 days to PT. will have family massage. Status: Active Splenomegaly (R16.1, 789.2) Status: Active Vitamin D deficiency (E55.9, 268.9) Comments: increase 5K ddilay Status: Active Medications Name Dates Details Aspirin 81 MG Oral Tablet Delayed Release Active 1 qd (81 MG) Crestor 5 MG Oral Tablet 1 (one) Tablet qd for 0 days Quantity: 30 {Tablet} Refills: 3 Ordered:17-Sep-2018 Jason MOHAN YolandaArleyrosy MOHAN Yolanda Start : 17-Sep-2018 Active Comments:didnt tolerate lipitor Vitamin B12 1000 MCG Oral Tablet Extended [...] patient could not tolerate Vitamin D (Ergocalciferol) 06052 UNIT Oral Capsule 1 (one) Capsule q [...] for Tdap vaccination (Renamed from Need for kxmasnoiwk-qvwgzhp-snrktsihc (Tdap) vaccine, adult/adolescent) (Z23, V06.1) Status: Inactive [...] CT w/CCTA Result: Comments: See Note; NOTES: [facility] Imaging Services [address] [place] [address] w/CCTA MR#: [id number] Acct: [id number] Name: ROSA LIMON Rep #: [id number] : 1955 F 63 From: Olegario Yang MD PCP: Rajani Camara MD Status: REG CLI Study: Limited Chest CT w/CCTA Date of Exam: 04/30/18 Exam# [id number] Ordering Dr: Rajani Camara MD STUDY: CT [...] Toshia Yang MD at 13:32 EDT Tel [phone], Service support , CC: Rajani Camara MD Underwriting Director: Signed 01-Jan-2018 SCREENING MAMM (CAD), BILAT Result: Comments: See Note; NOTES: [facility] Imaging Services [address] [place] [address] SCREENING MAMM (CAD), BILAT MR#: [id number] Acct: [id number] Name: ROSA LIMON Rep #: [id number] : 1955 F 62 From: Olegario Yang MD PCP: Rajani Camara MD Status: REG CLI Study: SCREENING MAMM (CAD), BILAT Date of Exam: 01/01/18 Exam# [id number] Ordering Dr: Rajani Camara MD MAMMOGRAPHY - [...] delay biopsy of a clinically suspicious abnormality. [id number] Electronically Signed: Olegario Yang MD at 9:53 EDT Tel [phone], S gene support , CC: Rjaani Camara MD Underwriting Director: Signed 28-Jan-2017 Dexa Bone Density Study (HP) Result: Comments: See Note; NOTES: [facility] Imaging Services [address] [place] [address] Verda 4d Dexa Bone Density Study (HP) MR#: [id number] Acct: [id number] Name: JACQUIE LIMON Rep #: [id number] : 1955 F 62 From: Olegario Yang MD PCP: Rajani Camara MD Status: REG CLI Study: Dexa Bone Density Study (HP) Date of Exam: 01/28/17 Exam# [id number] Ordering Dr: Rajani Cota MD STUDY: DUAL [...] Olegario Yang MD at 9:34 EDT Tel [phone], Service support , CC: Rajani Camara MD Underwriting Director: Signed 31-Dec-2016 SCREENING MAMM (CAD), BILAT Result: Comments: See Note; NOTES: [facility] Imaging Services [address] [place] [address] Verdana 4d SCREENING MAMM (CAD), BILAT MR#: [id number] Acct: [id number] Name: VICKIE LIMON Rep #: [id number] : 1955 F 61 From: Olegario Yang MD PCP: Rajani Camara MD Status: REG CLI Study: SCREENING MAMM (CAD), BILAT Date of Exam: 12/31/16 Exam# [id number] Ordering Dr: Rajani Lopez i, MD MAMMOGRAPHY [...] delay biopsy of a clinically suspicious abnormality. [id number] Electronically Signed: Olegario Yang MD a t 8:16 EDT Tel [phone], Service support , CC: Rajani Camara MD Underwriting Director: Signed 23-Oct-2016 Aorta Result: Comments: See Note; NOTES: [facility] Imaging Services [address] [place] [address] Verdana 4d Aorta MR#: [id number] Acct: [id number] Name: ROSA LIMON Rep #: [id number] : 1955 F 61 From: Olegario Yang MD PCP: Rajani Camara MD Status: REG CLI Study: Aorta Date of Exam: 10/23/16 Exam# [id number] Ordering Dr: Rajani Camara MD PROCEDURES: ULTRASOUND [...] Yang MD 18/10/21 at 10:31 EST Tel [phone], Service support [phone], CC: Rajani Camara MD Underwriting Director: Signed 30-May-2016 Duplex Arterial Flow Limited Result: Comments: See Note; NOTES: [facility] Imaging Services [address] [place] [address] Verdana 4d Duplex Arterial Flow Limited MR#: [id number] Acct: [id number] Name: WILLIAMS LIMON [facility] Rep #: [id number] : 1955 F 61 From: Olegario Yang MD PCP: Lavelle STONE,Jamshid Chi Status: REG CLI Study: Duplex Arterial Flow Limited Date of Exam: 05/30/16 Exam# [id number] Ordering Dr: Rajani Leon MD STUDY: ULTRASOUND [...] Olegario Yang MD at 11:04 EDT Tel [phone], Service support [phone], Fax CC: Rajani Camara MD; Jamshid Valderrama MD Underwriting Director: Signed 30-May-2016 Transvaginal Non- Result: Comments: See Note; NOTES: [facility] Imaging Services [address] [place] [address] Verdana 4d Transvaginal Non- MR#: [id number] Acct: [id number] Name: AYLEEN LIMON Rep #: [id number] : 1955 F 61 From: Olegario Yang MD PCP: Jamshid Valderrama MD, Chi Status: REG CLI Study: Transvaginal Non- Date of Exam: 05/30/16 Exam# [id number] Ordering Dr: Rajani Camara MD STUDY: ULTRASOUND [...] Olegario Yang MD at 11:04 EDT Tel [phone], Service support [phone], CC: Rajani Camara MD; Jamshid Valderrama MD Underwriting Director: Signed 30-May-2016 Pelvic (Non ) Result: Comments: See Note; NOTES: [facility] Imaging Services [address] [place] [address] Verdana 4d Pelvic (Non ) MR#: [id number] Acct: [id number] Name: ROSA LIMON Rep #: [id number] : 1955 F 61 From: Olegario Yang MD PCP: Lavelle STONE,Jamshid Cruz Status: REG CLI Study: Pelvic (Non ) Date of Exam: 05/30/16 Exam# [id number] Ordering Dr: Rajani Camara MD STUDY: ULTRASOUND [...] Olegario Yang MD at 11:04 EDT Tel [phone], Service support [phone], CC: Rajani Camara MD; Jamshid Valderrama MD Underwriting Director: Signed Family History Unknown Family Member Name [...] qd Status: Active 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 Comments: walk 8 miles at work. she does home exercise video daily Status: Active Living Situation Comments: lives with spouse, work so not have children. ira [phone] or [phone] Status: Active No Drug Use Status: Active [...] kg/m2 Body Surface Area Calculated 1.81 m2 27-Unc-073772:52 Temperature 97 f Comments: Method: Temporal Pulse [...] 1.81 m2 Results Date Description Value Details 53-Gaw-117618:36 METABOLIC PANEL, Comments: PATIENT WAS FASTINGPERFORMED BY: BN [facility] Ucwcqqzznm3557 [facility] [id number] BY: CB [facility] Trcycg3293 [facility] [id number] [facility] (20683) ALT (SGPT) 11 [iU]/L (Normal) Range: 0-32 [...] 8-27 Glucose 98 mg/dL (Normal) Range: 65-99 32-Ggp-029264:36 LIPOPROTEIN, BLD, BY NMR Comments: PATIENT WAS FASTINGPERFORMED BY: BN [facility] Khwibengvj1750 [facility] [id number] BY: CB [facility] Cuejaa7441 [facility] [id number] (66709) LP-IR Score 50 (Abnormal) Comments: INSULIN RESISTANCE MARKER <--Insulin Sensitive Insulin Resistant--> Percentile in Reference PopulationInsulin Resistance ScoreLP-IR Score Low 25th 50th 75th High <27 27 45 63 >63LP-IR Score is inaccurate if patient is non-fasting. .The LP-IR score is a laboratory developed i [facility] that has beenassociated with insulin resistance and [...] were developed and their performance characteristicsdetermined by [employer]. These assays have not been cleared by [...] 1600 - 2000 Very High > 2000 68-Jbd-982210:36 CALCIFIDIOL (14780) VIT D Comments: PATIENT WAS FASTINGPERFORMED BY: BN [facility] Pwuqhixowi2492 [facility] [id number] BY: CB [facility] Fhtasd3174 [facility] [id number] 25 Vitamin D, 25-Hydroxy 19.1 ng/mL (Abnormal) Range: 30.0-100.0 Comments: Vitamin D deficiency has been defined by the [place] [facility] and an Endocrine Society practice guideline as alevel of serum 25-OH vitamin D less than 20 ng/mL (1,2).The Endocrine Society went on to further define vitamin Dinsufficiency as a level between 21 and 29 ng/mL (2).1. IOM ([place] of Medicine). 2010. Dietary reference intakes for calcium and D. [place]: The National Academies Press.2. Jose MF, Ciera NIELSON, Scar SANTAMARIA, et al. Evaluation, treatment, and prevention of vitamin D deficiency: an Endocrine Society clinical practice guideline. JCEM. 2010; 96(7):1911-30. 61-Pdq-628220:27 Urinalysis, Office (24238) UA - NITRITE Negative (Normal) UA - LEUKOCYTE ESTERASE Trace (Normal) URINE UROBILINGN KEN TIMED Normal mg/dL (Normal) UA - PROTEIN Negative mg/dL (Normal) UA - SPECIFIC GRAVITY 1.010 (Normal) UA - KETONES Negative mg/dL (Normal) UA - BILIRUBIN Negative (Normal) UA - GLUCOSE Negative (Normal) 91-Vqm-270094:46 SPEP (14099) Comments: PATIENT WAS FASTINGPERFORMED BY: [employer] [id number] BY: Effective Measure [facility] [id number] Please note: SPRCS (Normal) Comments: Protein electrophoresis scan will follow via computer, mail, orcourier delivery. A/G Ratio 1.6 (Normal) Range: 0.7-1.7 Globulin, Total 2.5 g/dL (Normal) Range: 2.2-3.9 M-Adams Not Observed g/dL (Normal) Gamma Globulin 0.7 g/dL (Normal) Range: 0.4-1.8 Beta Globulin 1.0 g/dL (Normal) Range: 0.7-1.3 Umsnp-4-Ssstmapr 0.7 g/dL (Normal) Range: 0.4-1.0 Nsese-8-Qrodweoo 0.2 g/dL (Normal) Range: 0.0-0.4 Albumin 3.9 g/dL (Normal) Range: 2.9-4.4 Protein, Total, Serum 6.4 g/dL (Normal) Range: 6.0-8.5 73-Rdu-069498:46 Sed Rate Erythrocyte Comments: PATIENT WAS FASTINGPERFORMED BY: [employer] X[address] [id number] BY: [employer] Ojzdnc6884 [facility] [id number] (72985) Sedimentation Rate-Westergren 2 mm/h (Normal) Range: 0-40 07-Hxq-020130:46 HEPATIC FUNCTION PANEL Comments: PATIENT WAS FASTINGPERFORMED BY: [employer] [id number] BY: in3Dgallery6370 [facility] [id number] (11512) ALT (SGPT) 7 [iU]/L (Normal) Range: 0-32 AST (SGOT) 13 [iU]/L (Normal) Range: 0-40 Alkaline Phosphatase, S 84 [iU]/L (Normal) Range: 39-117 Bilirubin, Direct 0.11 mg/dL (Normal) Range: 0.00-0.40 Bilirubin, Total 0.4 mg/dL (Normal) Range: 0.0-1.2 Albumin, Serum 4.3 g/dL (Normal) Range: 3.6-4.8 03-Lzb-492772:46 LIPOPROTEIN, BLD, BY NMR Comments: PATIENT WAS FASTINGPERFORMED BY: [employer] [id number] BY: [employer] Uygyjv9155 [facility] [id number] (73943) LP-IR Score 34 (Normal) Comments: INSULIN RESISTANCE MARKER <--Insulin Sensitive Insulin Resistant--> Percentile in Reference PopulationInsulin Resistance ScoreLP-IR Score Low 25th 50th 75th High <27 27 45 63 >63LP-IR Score is inaccurate if patient is non-fasting. .The LP-IR score is a laboratory developed i [facility] that has beenassociated with insulin resistance and [...] were developed and their performance characteristicsdetermined by [employer]. These assays have not been cleared by [...] 1600 - 2000 Very High > 2000 81-Swh-289362:46 CALCIFIDIOL (70972) VIT D Comments: PATIENT WAS FASTINGPERFORMED BY: BN [facility] [address] [id number] BY: CB [facility] Ieuges4253 [facility] [id number] 25 Vitamin D, 25-Hydroxy 63.5 ng/mL (Normal) Range: 30.0-100.0 Comments: Vitamin D deficiency has been defined by the [place] ofMedicine and an Endocrine Society practice guideline as alevel of serum 25-OH vitamin D less than 20 ng/mL (1,2).The Endocrine Society went on to further define vitamin Dinsufficiency as a level between 21 and 29 ng/mL (2).1. IOM ([place] of Medicine). 2010. Dietary reference intakes for calcium and D. [place]: The National Academies Press.2. Jose MF, Ciera [place], Scar SANTAMARIA, et al. Evaluation, treatment, and prevention of vitamin D deficiency: an Endocrine Society clinical practice guideline. JCEM. 2010; 96(7):1911-30. 0-Tqj-277401:13 Methymalonic Acid, Serum Comments: PATIENT NOT FASTINGPERFORMED BY: [employer] [id number] BY: [address] [id number] (71227) Methylmalonic Acid, Serum 145 nmol/L (Normal) Range: 0-378 5-Mui-927466:13 Vitamin B-12 (cyanocobalamin) Comments: PATIENT NOT FASTINGPERFORMED BY: [employer] [id number] BY: [address] [id number] (68372) Vitamin B12 1919 pg/mL (Abnormal) Range: 211-946 8-Nhr-420876:13 HEPATITIS C ANTIBODY Comments: PATIENT NOT FASTINGPERFORMED BY: [employer] [id number] BY: [address] [id number] Inf ormation: NURSE DRAW (45767) Hep C Virus Ab <0.1 {s/co_ratio} (Normal) Range: 0.0-0.9 Comments: Negative: < 0.8 Indeterminate: 0.8 - 0.9 Positive: > 0.9 . The CDC recommends that a positive HCV antibody result be followed up with a HCV Nucleic Acid Amplification test (979702). :54 Thin prep Pap Comments: Source.............Cervix;EndocervixNo. of containers..01 CYTYC Thin Prep VialPATIENT NOT FASTINGPERFORMED BY: =G [employer] [id number] BY: WB [facility] (65992) (no STD rp Nkybwdxelf393 [place] [facility] W [id number] Information: [id number] testing) Age Gdln ACOG Testing 30-65 (Normal) 79-Ayz-12700:54 IGP, Aptima HPV, Comments: Source.............Cervix;EndocervixNo. 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) Plan of Care Name Dates Details Instructions Mild hyperlipidemia : *Cholesterol - Nonprescription Treatment Indication: Mild hyperlipidemia Mild hyperlipidemia : Cholesterol mgmt Indication: Mild hyperlipidemia BMI 26.0-26.9,adult : Eprescribed prescriptions (G8553) Indication: BMI 26.0-26.9,adult Shoulder pain, left : *Trigger Point Injections Indication: Shoulder pain, left Planned Observations LIPOPROTEIN, BLD, BY NMR (58702)Indication: Mild hyperlipidemia On: 22-Sxp-021247:14 Request Comments: do in 2-3 months - end october -november CBC W/AUTO DIFF WBC (68746)Indication: Splenomegaly On: 23-Weq-479250:12 Request VITAMIN B-12 (CYANOCOBALAMIN) (37875)Indication: Current nonsmoker (Renamed from Current non-smoker) On: 34-Rwe-004565:04 Request Metabolic Panel, Basic (33251)Indication: Hyperkalemia On: 65-Izc-198085:03 Request HEPATIC FUNCTION PANEL (03377)Indication: Mild hyperlipidemia On: 07-Gfp-018656:02 Request CALCIFEDIOL (73821)Indication: Vitamin D deficiency On: 48-Dhc-663684:02 Request Metabolic Panel, Basic (47060)Indication: Hyperkalemia On: 18-Swu-403275:20 Request Comments: recheck in 4 weeks CALCIFIDIOL (12122) VIT D 25Indication: Vitamin D deficiency On: 77-Xyf-872865:20 Request Comments: recheck in 4 weeks Lipid Panel (79976)Indication: Mild hyperlipidemia On: 82-Qsk-172137:19 Request Comments: recheck in 3 months Metabolic Panel, Comprehensive (40767)Indication: Mild hyperlipidemia On: 96-Cfx-099022:19 Request Comments: recheck in 3 months T4, FREE (THYROXINE) (56344)Indication: Abnormal laboratory test On: :48 Request TSH (64778)Indication: Abnormal laboratory test On: 27-Bnn-81252:48 Request HEPATIC FUNCTION PANEL (07726)Indication: Mild hyperlipidemia On: :30 Request LIPOPROTEIN, BLD, BY NMR (69786)Indication: Mild hyperlipidemia On: :29 Request Planned Encounters Medical; Remy phys, annual exam - On: 09-Nov-2018 10:30 [facility] Yolanda Gomez DO, DO, Kathleen Planned Procedures ULTRASOUND, ABDOMEN, LIMITED On: 17-Sep-2018 Intent (14567)By: Yolanda Gomez DO, DO, Kathleen Flu Vaccine (Quadrivalent) 06779Cx: On: 17-Sep-2018 Intent Yolanda Gomez DO, DO, Comments: Flulaval Quad [id number] 03619.5mlL dltd, IMMorgan Arizmendi, LPNABN signed Yolanda SCREENING DIGITAL TOMOSYNTHESIS OF On: 20-Oct-2017 Intent BREAST (64596)By: Rajani Camara MD Comments: after - M DRAIN/INJECT MAJOR JOINT OR BURSA On: 22-May-2017 Intent (83595)By: Rajani Camara MD Comments: 2 cc marcaine lot # [id number] exp 09-01-2018 1 cc Kenalog lot [id number] exp left shoulder given per Dr. Camara DEXA SCAN AXIAL SKELETON (12535)By: On: 21-Jan-2017 Intent Rajani Camara MD Wax CurettesBy: Rajani Camara MD On: 22-Oct-2016 Intent Ear Irrigation (29644)By: Hoa On: 22-Oct-2016 Intent Rajani STONE Comments: Ear Irrigation performed on:r earAmount/color removed cerumen: dark brown, large amountOUtcome:clear and toleratedUsed wax curettes by DB Ultrasound - AortaBy: Hoa STONE, On: 22-Oct-2016 Intent Rajani Camarillo SCREENING DIGITAL TOMOSYNTHESIS OF On: 22-Oct-2016 Intent BREAST (85541)By: Rajani Camara MD MAMMOGRAM, SCREENING, BOTH BREAST On: 22-Oct-2016 Intent (58057)By: Rajani Camara MD TDAP VACCINE >7 IM (68509)By: On: 22-Oct-2016 Intent Rajani Camara MD Comments: Lot:[id number]:01/16/19Dose:prefilled 0.5mgRoute:IMSite: L DltdGiven By:JOMAR signed Bone Density StudyBy: Hoa STONE, On: 22-Oct-2016 Intent Rajani Camarillo Flu Vaccine (Quadrivalent) 64294Vw: On: 01-Jul-2016 Intent Rajani Camara MD Comments: FLUlot: [id number]:01/15site:Lt deltoidroute:IMdose:.5mlWILLIAMS MITTAL Ultrasound - PelvisBy: Hoa STONE, [...] Current nonsmoker (Renamed from Current non-smoker) Encounters Office Visit On: 17-Sep-2018 9:29 Encounter Reason: Follow up for chronic medical issues - The patient feels well with no complaints, has good energy level and is sleeping well. Patient has been compliant with instructions. Current medication use: no pebbles End: 17-Sep-2018 10:29 e effects and compliant with dosing regimen. Patient sleeps 7 hours per night. Impact of disease: emotional impact-mild. Nutrition: balanced diet and supplemental vitamins. The medical issues the patien t is following up for include high cholesterol, osteoporosis/osteopenia and other (post menopausal, vitamin d def.). Note for Follow up for chronic medical issues: last dexa recent ly--? 2yrbp outside offiece are 120-130--Encounter Diagnosis: Current nonsmoker (Renamed from Current non-smoker), BMI 26.0-26.9,adult, Mild hyperlipidemia, Vitamin D deficiency, Carotid stenosis, Hyperkalemia, Splenomegaly [facility] Phone Encounter On: 05-May-2018 [...] for Tdap vaccination (Renamed from Need for jnupszhpep-hxsvoir-nlxyfbryl (Tdap) vaccine, adult/adolescent), Vitamin D deficiency, Mild [...] of ovary, Dyspareunia [facility] Payers MedicareAnthem/Jailene Limon; arie guarantor
--- OUTSIDE RECORDS SUMMARY | 2018-11-25 05:34 | XMS RPT_ITS ---
:1955 Author Organization OHIP Care Team Providers Name Role Phone Yolanda Gomez DO Attending Unavailable Jason DOYolanda Referring Unavailable Jason DOYolanda Consulting Unavailable JasonYolanda Attending Unavailable JasonYolanda Referring Unavailable Jason Yolanda Primary Care Unavailable Bonezzi, Rajani Attending Unavailable Bonezzi, Rajani Referring Unavailable Bonezzi, Rajani Primary Care Unavailable Bonezzi, Rajani Attending Unavailable Bonezzi, Rajani Primary Care Unavailable Bonezzi, Arjani Attending Unavailable Bonezzi, Rajani Referring Unavailable Bonezzi, Rajani Primary Care Unavailable Sav Oakes Attending Unavailable Bonezzi, Rajani Referring Unavailable Bonezzi, Rajani Primary Care Unavailable Bonebriani, Rajani Consulting Unavailable PROBLEMS PROBLEMS No Problem Records FoundPROCEDURES PROCEDURES No Procedure Records FoundRESULTS RESULTS SPLEEN Observed: 09/23/2018 Status: F Source: DARLINE 9:04 AM [facility] REPOSITORY [facility] Imaging Services [address] [place] [address] Spleen MR#: [id number] Acct: [id number] Name: ROSA LIMON Rep #: [id number] : 1955 F 63 From: Eleuterio Beaver PCP: Yolanda Gomez DO Status: REG CLI Study: Spleen Date of Exam: 09/23/18 Exam# [id number] Ordering Dr: Yolanda Gomez DO STUDY: ABDOMINAL ULTRASOUND -LIMITED REASON FOR VISIT: Female, 63 years old. Splenomegaly. TECHNIQUE: Ultrasound evaluation of the left upper quadrant was performed with real-time and static hernandez-scale imaging. TECHNICAL QUALITY: Adequate. COMPARISON: None available at the time of dictation. FINDINGS: Spleen measures 9.8 x 3.6 x 3.3 cm which is within normal limits. Normal echotexture. No masses. Left kidney measures 9.9 x 4.6 x 5.3 cm without hydronephrosis. Renal cortex 1.7 cm. No masses or cysts. US/Spleen IMPRESSION: Normal spleen. Normal left kidney. Electronically Signed: Eleuterio Beaver MD at 7:36 EST , Service support , CC: Yolanda Gomez DO Dairy Husbandman: Signed LIMITED CHEST CT Observed: 04/30/2018 Status: F Source: DARLINE W/CCTA 2:50 PM [facility] REPOSITORY [facility] Imaging Services [address] [place] [address] w/CCTA MR#: [id number] Acct: [id number] Name: ROSA LIMON Rep #: [id number] : 1955 F 63 From: Olegario Yang MD PCP: Rajani Camara MD Status: REG CLI Study: Limited Chest CT w/CCTA Date of Exam: 04/30/18 Exam# [id number] Ordering Dr: Rajani Camara MD STUDY: CT [...] no demonstrated pleural abnormality. Normal heart and pericardium. Normal mediastinum. Normal hilar regions. Normal unenhanced pulmonary arteries. There is atherosclerotic calcification of the aortic arch Normal osseous structures. There is no demonstrated abnormality of the visualized upper abdomen. CT/Limited Chest CT w/CCTA IMPRESSION: No acute abnormality is seen. Electronically Signed: Olegario Yang MD at 13:32 EDT Tel [phone], Service support , CC: Rajani Camara MD Dairy Husbandman: Signed SCREENING MAMM (CAD), Observed: 01/01/2018 Status: F Source: DARLINE BILAT 9:15 AM [facility] REPOSITORY [facility] Imaging Services [address] [place] [id number] SCREENING MAMM (CAD), BILAT MR#: [id number] Acct: [id number] Name: ROSA LIMON Rep #: [id number] : 1955 F 62 From: Olegario Yang MD PCP: Rajani Camara MD Status: REG CLI Study: SCREENING MAMM (CAD), BILAT Date of Exam: 01/01/18 Exam# [id number] Ordering Dr: Rajani Camara MD MAMMOGRAPHY - BILATERAL SCREENING REASON FOR EXAM: Female, 62 years old. Routine annual screening examination. PERTINENT HISTORY: Non-contributory. TECHNIQUE: Digital bilateral breast taz (3D mammographic acquisition) in the CC and MLO projections. 2-D mediolateral oblique (MLO) and craniocaudad (CC) views of both breasts were obtained. CAD: Full Field Digital Mammography with Computer Added Detection was performed. COMPARISON: Comparison is [...] delay biopsy of a clinically suspicious abnormality. [id number] Electronically Signed: Olegario Yang MD at 9:53 EDT Tel [phone], Service support , CC: Rajani Camara MD Dairy Husbandman: Signed ALLERGIES ALLERGIES DATE TYPE / CODE NAME / CODE REACTION SEVERITY SOURCE 04/30/2018 Drug No Known Unknown [facility] Allergy/4160 Allergies/F00 [facility] [address]30(SNOMED [id number](RXNOR Repository CT) M) ENCOUNTERS ENCOUNTERS ADMIT/DISCHARGE ACCOUNT ADMITTING ENCOUNTER LOCATION SOURCE NUMBER CLASS 09/23/2018 [id number] Ambulatory [place] [facility] 2 [facility] ing:US Repository 09/17/2018 [id number] Ambulatory Building:[facility] OHIP Practices Repository 04/30/2018 [id number] Ambulatory [place] Lynch 9 [facility] ing:CT Repository 04/30/2018 [id number] Ambulatory BMSBuilding:B [place] 1 MS.CF.G [facility] 04/28/2018 [id number] Ambulatory [place] Lynch 0 [facility] ing:[facility] Repository 01/01/2018 [id number] Ambulatory [place] Lynch 5 [facility] ing:OPBI Repository PAYERS PAYERS ENCOUNTER GUARANTOR PAYER SUBSCRIBER SOURCE 09/23/2018 PETER Schumacher Primary ROSA A Lynch [id number] N Insurance:MEDICARE KENDALLDOB: Community [employer] PART A BPolicy [id number] Number: Repository [address]Kdv: 330 [id number] [phone] Date:2018-09-17 09/23/2018 Secondary ROSA A Lynch Insurance:ANTHEMPolic KENDALLDOB: Community y Number: [id number] Hospital [id number] Repository Date:0902-00-25CX [address], [place] [address]NH: 09/23/2018 Tertiary NOT GIVENUNK [place] Insurance:SELF PAY [facility] Number: Effective Repository Date:2018-09-17 09/17/2018 Rosa A Primary Rosa A OHIP Practices KendallDOB: Insurance:MedicarePol KendallDOB: Repository [id number] N icy Number: [id number] [address] [id number] [address] [place], [place] Date:9600-13-[place], [place] [address]Rqf: ([phone]) Name:[facility] [address] [address]Sub: [id number], [place] [phone] (HP)Tel: [phone]: [phone] (HP) (wp) [phone] (WP) 09/17/2018 Secondary Rosa A OHIP Practices Insurance:Elizabeth/Supp KendallDOB: Repository [facility] Number: [id number] [address] Date:6869-42-45Gyyh [place], [place] Name:[address] [address]Tbj: [id number], [place] ~(3 [phone]: [phone] (HP)Tel: [phone] (WP) 09/17/2018 Tertiary Rosa A OHIP Practices Insurance:Medical KendallDOB: Repository [facility] [id number] Number: [address] [id number] [place], [place] Date:2017-09-01 - [id number]: [id number] ~(3 Name:[facility] [address] (HP)Tel: 41[place], [place] [phone]: [phone] (ZR) [phone] 04/30/2018 Peter E Primary ROSA A Darline [id number] [address] Insurance:MEDICAL KENDALLDOB: [facility] [id number], [place] Number: Repository [id number]: [phone] [id number] [phone] (HP) Date:6501-84-21YG [address] [place] [address]MU: 04/30/2018 Secondary NOT GIVENUNK [place] Insurance:SELF PAY [facility] Number: Effective Repository Date:2018-04-21 04/30/2018 Peter E Primary ROSA A Lynch [id number] Insurance:MEDICAL KENDALLDOB: [facility] [id number], [place] Number: Repository [id number]: [phone] [id number] [phone] () Date:7155-57-25JV [address] [place] [phone]: 04/30/2018 Secondary NOT GIVENUNK Lynch Insurance:SELF PAY [facility] Number: Effective Repository Date:2018-04-30 04/28/2018 Peter Schumacher Primary NOT GIVENUNK Lynch [id number] [address] Insurance:SELF PAY [place], [place] Number: Effective Repository [id number]: 330) Date:2018-04-21 [phone] () 01/01/2018 Peter Schumacher Primary ROSA A Lynch [id number] Insurance:MEDICAL KENDMICAHDOB: [facility] [id number] Number: Repository [id number]: [id number] [phone] Date:0116-40-14HG [address] (HP) [address] [place] [phone]: 01/01/2018 Secondary NOT GIVENUNK [place] Insurance:SELF PAY [facility] Number: Effective Repository Date:2017-10-20
== END ==
PROVIDERS: Family Provider Internal Medicine; PCP Internal Medicine; Referring Provider Internal Medicine; Visit Provider Internal Medicine
DX: R16.1 Splenomegaly, not elsewhere classified (principal)
CPT/HCPCS: 76705

== ENCOUNTER → 2018-12-09 12:47 | Outpatient (CLI) | payer MEDICARE, BC, SELFPAY ==
--- NOTE | 2018-12-09 12:48 | BI_ITS ---
MAMMOGRAPHY - BILATERAL SCREENING REASON FOR EXAM: Female, 63 years old. Routine annual screening examination. PERTINENT HISTORY: Non-contributory. TECHNIQUE: Digital bilateral breast taz (3D mammographic acquisition) in the CC and MLO projections. 2-D mediolateral oblique (MLO) and craniocaudad (CC) views of both breasts were obtained. CAD: Full Field Digital Mammography with Computer Added Detection was performed. COMPARISON: Comparison is made with prior study dated January 01, 2018 and December 31, 2016. FINDINGS: Breast Composition: There are scattered areas of fibroglandular density. There are no dominant masses or suspicious calcifications. No other significant abnormalities are identified. There has been no significant change since the prior study. BI/SCREENING MAMM (CAD), BILAT IMPRESSION: Stable bilateral screening mammogram. Yearly follow-up mammogram recommended. (A) ASSESSMENT CATEGORY: BIRADS Category 1: Negative. A letter regarding these results will be sent to the patient by the facility within 30 days. Approximately 10% of breast cancers are not detected by mammography. A normal mammogram should not delay biopsy of a clinically suspicious abnormality. [id number] Electronically Signed: Olegario Yang, at 15:08 EDT , Service support ,
== END ==
PROVIDERS: Family Provider Internal Medicine; PCP Internal Medicine; Referring Provider Internal Medicine; Visit Provider Internal Medicine
DX: Z12.31 Encounter for screening mammogram for malignant neoplasm of breast (principal)
CPT/HCPCS: 77063; 77067

== ENCOUNTER → 2020-03-06 10:13 | Outpatient (CLI) | payer MEDICARE, BC, SELFPAY ==
[2020-03-04 09:43] VITALS: BMI 25.0
[2020-03-06 10:22] LABS: Bacteria 0 SEEN /hpf (None Seen); Mucous, Urine 0 SEEN /hpf (<or=2+); Red Blood Cells-Urine 0 SEEN /hpf (0-5); White Blood Cells 0 SEEN /hpf (0-5)
[2020-03-06 10:40] LABS: Color, Urine Yellow (Yellow); Glucose, Dipstick Normal (Normal); Ketone-Dipstick Negative (Negative); Leukocyte Esterase-Dipstick Negative /ul (Negative); Nitrite-Dipstick Negative (Negative); Occult Blood-Urine Negative /ul (Negative); Protein-Dipstick Negative (Negative); Specific Gravity, Urine 1.005 (1.002-1.030); Urine Bilirubin Dipstick Negative (Negative); Urine Clarity Sl. Cloudy (Clear); Urine Urobilinogen Normal (Normal)
[2020-03-06 10:54] LABS: Squamous Epithelial Cells - UA 0-5 SEEN /hpf (5-10)
== END ==
PROVIDERS: PCP Internal Medicine; Referring Provider Nurse Practitioner Family; Visit Provider Nurse Practitioner Family
DX: R10.9 Unspecified abdominal pain (principal)
CPT/HCPCS: 81001; 87086; 87088

== ENCOUNTER 2020-11-02 09:16 | Outpatient (RCR) | payer MEDICARE, BC, SELFPAY ==
[2020-03-04 09:43] VITALS: BMI 25.0
[2020-11-02] MEDS: COVID-19 VACC, MRNA(PFIZER)/PF 30 MCG/0.3 ML SYRINGE IM (11:52)
[2020-11-23] MEDS: COVID-19 VACC, MRNA(PFIZER)/PF 30 MCG/0.3 ML SYRINGE IM (11:16)
== END 2020-11-02 23:59 ==
LOC: IMMUN 09:16
PROVIDERS: PCP Internal Medicine; Visit Provider Family Medicine
DX: Z23 Encounter for immunization (principal)
CPT/HCPCS: 0001A; 0002A

== ENCOUNTER → 2021-01-09 09:44 | Outpatient (CLI) | payer MEDICARE, BC, SELFPAY ==
[2020-03-04 09:43] VITALS: BMI 25.0
--- NOTE | 2021-01-09 09:46 | CDU_ITS ---
Reason For Study: CAROTID STENSOSIS Rt. Velocities/BP Lt. Velocities/BP Prox CCA 124.3/14.7 cm/sec. Prox CCA 128.9/23.0 cm/sec. Mid CCA 99.9/23.0 cm/sec. Mid CCA 96.6/12.6 cm/sec. Dist CCA 107.7/24.3 cm/sec. Dist CCA 102.1/19.9 cm/sec. Prox ICA 116.9/26.9 cm/sec. Prox ICA 80.9/14.6 cm/sec. Mid ICA 102.5/28.2 cm/sec. Mid ICA 96.2/24.9 cm/sec. Dist ICA 96.1/24.8 cm/sec. Dist ICA 109.7/34.8 cm/sec. Rt. ICA/CCA = 116.9/107.7=1.1. Lt. ICA/CCA = 109.7/102.1=1.1. Prox ECA 77.7/13.8 cm/sec. Prox ECA 107.5/12.6 cm/sec. Rt. Vert. 60.0/12.7 cm/sec. Lt. Vert. 53.5/10.6 cm/sec. Right Extracranial There is intimal thickening but no significant atherosclerotic plaque noted in the right common carotid artery. There is heterogeneous, irregular atherosclerotic plaque noted in the right internal carotid artery. There is intimal thickening but no significant atherosclerotic plaque noted in the right external carotid artery. Antegrade flow is noted in the right vertebral artery. Left Extracranial There is intimal thickening but no significant atherosclerotic plaque noted in the left common carotid artery. There is intimal thickening but no significant atherosclerotic plaque noted in the left internal carotid artery. There is intimal thickening but no significant atherosclerotic plaque noted in the left external carotid artery. Antegrade flow is noted in the left vertebral artery. Procedure Carotid Duplex [id number]. Exam performed in department. VL/Carotid Duplex Ultrasound Interpretation Summary Mild (<50%) stenosis right extracranial internal carotid. No significant athero sclerotic plaque or stenosis noted in the left internal carotid artery. Flow within the vertebral a rteries is antegrade bilaterally. Ordering Physician: Yolanda Gomez Referring Physician: Yolanda Gomez Performed By: Holli Cruz, KALIA, RVT
== END ==
PROVIDERS: PCP Internal Medicine; Referring Provider Internal Medicine; Visit Provider Internal Medicine
DX: I65.23 Occlusion and stenosis of bilateral carotid arteries (principal)
CPT/HCPCS: 93880

== ENCOUNTER → 2021-01-11 14:19 | Outpatient (CLI) | payer MEDICARE, BC, SELFPAY ==
[2020-03-04 09:43] VITALS: BMI 25.0
--- NOTE | 2021-01-11 14:21 | BI_ITS ---
MAMMOGRAPHY - BILATERAL SCREENING REASON FOR EXAM: Female, 65 years old. Routine annual screening examination. PERTINENT HISTORY: Non-contributory. TECHNIQUE: Digital bilateral breast maurice (3D mammographic acquisition) in the CC and MLO projections. 2-D mediolateral oblique (MLO) and craniocaudad (CC) views of both breasts were obtained. CAD: Full Field Digital Mammography with Computer Added Detection was performed. COMPARISON: Comparison is made with prior examination 12/09/2018 and 01/01/2018. FINDINGS: Breast Composition: There are scattered areas of fibroglandular density. There are no dominant masses or suspicious calcifications. Stable small benign appearing bilateral axillary lymph nodes. No other significant abnormalities are identified. There has been no significant change since the prior study. BI/SCRN MAMM (CAD)W/MAURICE BILAT IMPRESSION: Stable bilateral screening mammogram. Yearly follow-up mammogram recommended. (A) ASSESSMENT CATEGORY: BIRADS Category 2: Benign. A letter regarding these results will be sent to the patient by the facility within 30 days. Approximately 10% of breast cancers are not detected by mammography. A normal mammogram should not delay biopsy of a clinically suspicious abnormality. [id number] Electronically Signed: Olegario Yang MD at 15:13 EDT , Service support ,
--- NOTE | 2021-01-11 14:29 | BD_ITS ---
STUDY: DUAL ENERGY X-RAY ABSORPTIOMETRY / DXA REASON FOR EXAM: Female, 65 years old. Z780. The patient is postmenopausal. Loss of height. TECHNIQUE: Bone Mineral Density (BMD) measurements of lumbar spine and bilateral hips were obtained. COMPARISON: Comparison is made with prior examination dated 01/28/2017. FINDINGS: Lumbar Spine (L1-L4): g/cm2 (1.026) / T-score (-1.3) / Z-score (0.3) Findings are suggestive of osteopenia with a low fracture risk. Left Femur Total: g/cm2 (0.763) / T-score (-1.9) / Z-score (-0.6) Left Femoral Neck: g/cm2 (0.832) / T-score (-1.5) / Z-score (0.1) Right Femur Total: g/cm2 (0.804) / T-score (-1.6) / Z-score (-0.3) Right Femoral Neck: g/cm2 (0.840) / T-score (-1.4) / Z-score (0.2) The T-Scores on the most recent prior examination were: Lumbar Spine (L1-L4): There has been improvement of bone density since the previous examination. Left Femur Total: which represents a worsening of 2.3%. Right Femur Total: which represents a worsening of 2.3%. BD/Dexa Bone Density Study IMPRESSION: The patient is considered osteopenic as outlined below according to World Yemi Organization (WHO) criteria with a moderate fracture risk. There has been worsening of bone density since the previous examination. Reference Information: The T-score is the number of standard deviations above or below the standard which is normal for young adults at their peak bone mineral density. The World Health Organization (WHO) interprets the T-scores as follows: Above -1 Normal bone density Between -1 and -2.5 Osteopenia Equal to / or below -2.5 Osteoporosis As a practical clinical guideline, osteopenia may be graded as follows: Mild -1 through -1.5 Moderate -1.6 through -2.0 Severe -2.1 through -2.4 The Z-score is the number of standard deviations above or below age-matched controls. A Z-score of less than -1.5 would be considered abnormal. References: 1. NIH Osteoporosis and Related Bone Diseases www osteo.org 2. International Society for Clinical Densitometry www iscd.org 3. National Osteoporosis Foundation www nof.org Electronically Signed: Olegario Yang MD at 15:34 EDT , Service support ,
== END ==
PROVIDERS: PCP Internal Medicine; Referring Provider Internal Medicine; Visit Provider Internal Medicine
DX: Z78.0 Asymptomatic menopausal state (principal); Z12.31 Encounter for screening mammogram for malignant neoplasm of breast
CPT/HCPCS: 77063; 77067; 77080

== ENCOUNTER → 2022-01-15 | Outpatient (CLI) | payer MEDICARE, BC, SELFPAY ==
--- NOTE | 2022-01-15 09:50 | BI_ITS ---
MAMMOGRAPHY - BILATERAL SCREENING REASON FOR EXAM: Female, 66 years old. Routine annual screening examination. PERTINENT HISTORY: Non-contributory. TECHNIQUE: Digital bilateral breast maurice (3D mammographic acquisition) in the CC and MLO projections. 2-D mediolateral oblique (MLO) and craniocaudad (CC) views of both breasts were obtained. CAD: Full Field Digital Mammography with Computer Added Detection was performed. COMPARISON: Comparison is made with prior study dated 01/11/2021 and 12/09/2018. FINDINGS: Breast Composition: There are scattered areas of fibroglandular density. There are no dominant masses or suspicious calcifications. Stable small benign-appearing bilateral axillary lymph nodes. No other significant abnormalities are identified. There has been no significant change since the prior study. BI/SCRN MAMM (CAD)W/MAURICE BILAT IMPRESSION: Stable bilateral screening mammogram. Yearly follow-up mammogram recommended. (A) ASSESSMENT CATEGORY: BIRADS Category 2: Benign. A letter regarding these results will be sent to the patient by the facility within 30 days. Approximately 10% of breast cancers are not detected by mammography. A normal mammogram should not delay biopsy of a clinically suspicious abnormality. [id number] Electronically Signed: Olegario Yang MD at 11:12 EDT ,
== END | disposition home or self-care (01) ==
LOC: OPBI 09:47
PROVIDERS: PCP Internal Medicine; Visit Provider Internal Medicine
DX: Z12.31 Encounter for screening mammogram for malignant neoplasm of breast (principal)
CPT/HCPCS: 77063; 77067

== ENCOUNTER 2022-06-02 19:49 | Emergency (ER) | payer MEDICARE, BC, SELFPAY ==
[2022-06-02 19:50] VITALS: BP 188/83; PULSE 116; RESP 18; TEMP 37.1; O2SAT 100; BMI 24.5
--- NOTE | 2022-06-02 20:02 | EDS_ITS ---
HPI History of Present Illness Chief Complaint: Allergic Reaction Detail of Chief Complaint: Rash, itching and hives today. Onset/Context/Timing Onset: Today Context: Gradual Onset Timing: Continuous Current Severity: Moderate Maximum Severity: Moderate Narrative Narrative: 67-year-old female was placed on amoxicillin on Friday for dental procedure she had done on Friday. She had her left lower molar removed. She is still on the amoxicillin and was scheduled to stop it today.. She started developing a rash earlier today which is spread to her chest back abdomen arms and legs. It does itch. She has never had a reaction like this before. Prior similar symptoms: No Recent Illness/Hospitalization: No PFSH PFSH Medical History Arthritis Home Medications calcium carbonate 500 mg calcium (1,250 mg) tablet (Calcium 500) 500 mg PO DAILY 03/04/20 [History Last Taken Unknown] rosuvastatin 5 mg tablet tab PO 03/04/20 [History Last Taken Unknown] amoxicillin 875 mg tablet tablet PO 06/02/22 [History Last Taken Unknown] prednisone 20 mg tablet 40 mg PO DAILY 9 days #18 tabs 06/02/22 [Rx Last Taken Unknown] Allergy/AdvReac Type Severity Reaction Status Date / Time Penicillins [PCN] Allergy Hives Verified 06/02/22 19:50 Social History Smoking Status: Never smoker alcohol intake: never ROS ROS ED ROS Narrative Rash, hives, itching. Review of Systems ROS Unobtainable: Denies due to encephalopathy Constitutional Constitutional ED: Denies chills or fever(s) Eyes Eyes: Denies blurry vision ENT ENT ED: Denies ear pain Cardiovascular Cardiovascular: Denies chest pain Respiratory/Chest Respiratory/Chest: Denies cough or dyspnea Gastrointestinal Gastrointestinal: Denies abdominal pain Genitourinary Genitourinary ED: Denies dysuria or hematuria Musculoskeletal Musculoskeletal: Denies arthralgias or back pain Integumentary Denies abscess or Abrasions Neurologic Neurologic: Denies headache(s) Psychiatric Psychiatric: Denies anxiety Endocrine Endocrinology: Denies cold intolerance Hematologic/Lymphatic Hematologic/Lymphatic: Reports none Allergic/Immunologic Allergic/Immunologic ED: Reports urticaria; Denies mouth swelling or tongue swelling EXAM Physical Exam Narrative Exam Narrative: 67-year-old female no acute distress. Vital signs stable afebrile. H EENT exam unremarkable. Neck nontender. Lungs are clear. Heart regular rhythm rate about 150 no murmur. Abdomen soft nontender. Moving all 4 extremities. Calves are nontender without edema or cords. Skin Red raised rash that blanches. Consistent with hives. It is on her neck, back, chest, abdomen and both her upper and lower extremities. Consistent with a drug reaction. Const Vital Signs: 06/02/22 19:50 Temperature 98.7 F Temperature Source Temporal Pulse Rate 116 H Respiratory Rate 18 Blood Pressure 188/83 H Blood Pressure Mean 118 Pulse Ox 100 Oxygen Delivery Method Room Air Positive well nourished and well developed; Negative for obese, cachectic, contractures or unkempt General Appearance ED: well developed and NAD; Negative for unkempt, cachectic, contractures, cyanotic, diaphoretic or pallor Nutritional Appearance: Negative for cachectic or obese HEENT Reports moist mucous membranes; Denies dry mucous membranes Negative for trauma or tenderness Mouth ED: No dry mucous membranes Mouth: No dry mucous membranes Eyes PERRL and EOMs intact bilaterally General Eye ED: Negative for pale conjunctiva or scleral icterus Neck no lymphadenopathy, supple and no JVD General: Negative for tenderness Lymph Lymphatic: Negative for other Chest Wall inspection of chest normal Chest: Negative for other Resp normal respiratory effort and clear to auscultation bilaterally Effort and Inspection: Negative for retractions Auscultation: Negative for rales, rhonchi or wheezes Cardio regular rhythm, S1 normal heart sound, S2 normal heart sound and no murmurs; Negative for regular rate Rate: tachycardic Rhythm: Negative for abnormal rhythm GI normal to inspection, nondistended, normoactive bowel sounds, non-tender, non- distended and no masses Inspection: Negative for abdominal distention Auscultation: normoactive bowel sounds Palpation: soft; Negative for tender Back/Spine no CVA tenderness General Back: Negative for CVA tenderness Cervical Spine: Negative for cervical spine tenderness Thoracic Spine / Upper Back: Negative for thoracic spinal tenderness Lumbar Spine / Lower Back: Negative for lumbar spinal tenderness Extremity normal to inspection General Extremety ED: Negative for edema or tenderness General Extremity: Negative for edema Neuro oriented x3 and CN's II-XII intact bilaterally Sensorium / Orientation: alert; Negative for orientation impaired, lethargic or stuporous Motor Exam: strength 5/5 throughout Psych mental status grossly normal Appearance: Negative for unkempt Attitude: No agitated Mood & Affect: Negative for depressed, anxious or tearful Skin No no rashes or lesions noted and no wounds Skin Narrative: Rash consistent with allergic reaction. Drug rash. Upper and lower extremities. Back, chest, abdomen. General Skin Exam: Negative for jaundice or pallor Lesions: No lesion noted Rashes: rashes noted Trauma: Negative for abrasion Wounds: Negative for wounds noted MDM MDM MDM Narrative Medical decision making narrative: 06-wkgh-biuWhxfrdr with acute allergic reaction most likely secondary to the antibiotic amoxicillin she has been on the last 6 to 7 days. P.o. prednisone. Given a prescription for prednisone for the next 9 days. She can stop the prednisone once the rash resolves. Return if worse. Discharge Plan Triage Chief Complaint: Allergic Reaction ED Provider: Holden Sheriff Dx/Rx/DC Orders Clinical Impression: Allergic reaction Instructions: ED General Allergic Reactions Prescriptions: New prednisone 20 mg tablet 40 mg PO DAILY 9 Days Qty: 18 0RF No Action rosuvastatin 5 mg tablet PO calcium carbonate [Calcium 500] 500 mg calcium (1,250 mg) tablet 500 mg PO DAILY amoxicillin 875 mg tablet PO Primary Care Provider: Yolanda Gomez Referrals: Yolanda Gomez DO [Primary Care Provider] - 1 Week if not improving Activity Restrictions/Additional Instructions: The right as you have are high secondary to generalized allergic reaction could be to anything. Most likely secondary to the antibiotic amoxicillin he had you on for your dental procedure. Stop the amoxicillin. Prednisone 40 mg a day until the rash is gone. If the rash goes away take the prednisone for 1 extra day. Benadryl for itching. Follow-up if not improving. Disposition Disposition: Home, Self Care
[2022-06-02] MEDS: predniSONE 20 MG Tablet 80 MG PO (20:05)
== END 2022-06-02 20:17 | disposition home or self-care (01) ==
LOC: ED 20:14
PROVIDERS: Emergency Provider Emergency Medicine; PCP Internal Medicine; Visit Provider Emergency Medicine
DX: T78.40XA Allergy, unspecified, initial encounter (principal); Z79.899 Other long term (current) drug therapy; X58.XXXA Exposure to other specified factors, initial encounter
CPT/HCPCS: 99283

== ENCOUNTER → 2022-12-19 | Outpatient (CLI) | payer MEDICARE, OTHER, SELFPAY ==
[2022-12-19 10:21] LABS: Potassium 4.3 mmol/L (3.5-5.1)
== END | disposition home or self-care (01) ==
PROVIDERS: PCP Internal Medicine; Referring Provider Internal Medicine; Visit Provider Internal Medicine
DX: E87.5 Hyperkalemia (principal)
CPT/HCPCS: 84132

== ENCOUNTER → 2023-02-19 | Outpatient (CLI) | payer MEDICARE, OTHER, SELFPAY ==
--- NOTE | 2023-02-19 09:50 | CDU_ITS ---
Reason For Study: Bilateral carotid stenosis Rt. Velocities/BP Lt. Velocities/BP Prox CCA 78.4/13.5 cm/sec. Prox CCA 87.6/16.3 cm/sec. Mid CCA 76.2/16.8 cm/sec. Mid CCA 74/16.3 cm/sec. Dist CCA 78.4/22.3 cm/sec. Dist CCA 81.4/18.8 cm/sec. Prox ICA 113.3/31.1 cm/sec. Prox ICA 85.1/15.1 cm/sec. Mid ICA 104.7/20 cm/sec. Mid ICA 86.3/24.9 cm/sec. Dist ICA 113.3/32.3 cm/sec. Dist ICA 97.4/26 cm/sec. Rt. ICA/CCA = 1.45. Lt. ICA/CCA = 1.20. Prox ECA 64.1/8 cm/sec. Prox ECA 70.4/6.5 cm/sec. Rt. Vert. 43.3/11.4 cm/sec. Lt. Vert. 54.4/10.2 cm/sec. Right Extracranial There is homogeneous, smooth atherosclerotic plaque noted in the right common carotid artery. There is heterogeneous, irregular atherosclerotic plaque noted in the right internal carotid artery. There is intimal thickening but no significant atherosclerotic plaque noted in the right external carotid artery. Antegrade flow is noted in the right vertebral artery. Left Extracranial There is homogeneous, smooth atherosclerotic plaque noted in the left common carotid artery. There is homogeneous, smooth atherosclerotic plaque noted in the left internal carotid artery. There is intimal thickening but no significant atherosclerotic plaque noted in the left external carotid artery. Antegrade flow is noted in the left vertebral artery. Procedure Carotid Duplex [id number]. This is a Carotid Duplex examination using B-mode, color flow and specral Doppler. Exam performed in department. VL/Carotid Duplex Ultrasound Interpretation Summary Calcific plaque with shadowing at the proximal right internal carotid artery wi th less than 50% stenosis Less than 50% stenosis right external carotid artery Smooth plaque at the proximal left internal carotid artery with less than 50% s tenosis Less than 50% stenosis left external carotid artery Patent antegrade vertebral arteries bilaterally No change from the previous examination of January 09, 2021 Ordering Physician: Rajani Camara Referring Physician: Rajani Camara Performed By: Kalina Tomlinson RVT
== END | disposition home or self-care (01) ==
LOC: CVS 09:49
PROVIDERS: PCP Internal Medicine; Referring Provider Internal Medicine; Visit Provider Internal Medicine
DX: I65.23 Occlusion and stenosis of bilateral carotid arteries (principal)
CPT/HCPCS: 93880

== ENCOUNTER → 2023-03-06 | Outpatient (CLI) | payer MEDICARE, OTHER, SELFPAY ==
--- NOTE | 2023-03-06 09:46 | BI_ITS ---
MAMMOGRAPHY - BILATERAL SCREENING REASON FOR EXAM: Female, 68 years old. Routine annual screening examination. PERTINENT HISTORY: Non-contributory. TECHNIQUE: Digital bilateral breast maurice (3D mammographic acquisition) in the CC and MLO projections. 2-D mediolateral oblique (MLO) and craniocaudad (CC) views of both breasts were obtained. CAD: Full Field Digital Mammography with Computer Added Detection was performed. COMPARISON: Comparison is made with prior study dated January 15, 2022 and January 11, 2021. FINDINGS: Breast Composition: The breasts are almost entirely fatty. There are no dominant masses or suspicious calcifications. Stable small benign appearing bilateral axillary lymph nodes. No other significant abnormalities are identified. There has been no significant change since the prior study. BI/SCRN MAMM (CAD)W/MAURICE BILAT IMPRESSION: Stable bilateral screening mammogram. Yearly follow-up mammogram recommended. (A) ASSESSMENT CATEGORY: BIRADS Category 2: Benign. A letter regarding these results will be sent to the patient by the facility within 30 days. Approximately 10% of breast cancers are not detected by mammography. A normal mammogram should not delay biopsy of a clinically suspicious abnormality. [id number] Electronically Signed: Olegario Yang MD at 10:49 EDT ,
--- NOTE | 2023-03-06 10:15 | BD_ITS ---
STUDY: DUAL ENERGY X-RAY ABSORPTIOMETRY / DXA REASON FOR EXAM: Female, 68 years old. Z780 -- postmenopausal TECHNIQUE: Bone Mineral Density (BMD) measurements of lumbar spine and bilateral hips were obtained. COMPARISON: Comparison is made with prior study dated January 11, 2021. FINDINGS: Lumbar Spine (L1-L4): g/cm2 (0.847) / T-score (-1.8) / Z-score (0.3) Findings are suggestive of osteopenia with a moderate fracture risk. Left Femur Total: g/cm2 (0.682) / T-score (-2.1) / Z-score (-0.6) Left Femoral Neck: g/cm2 (0.573) / T-score (-2.5) / Z-score (-0.7) Right Femur Total: g/cm2 (0.700) / T-score (-2.0) / Z-score (-0.5) Right Femoral Neck: g/cm2 (0.612) / T-score (-2.1) / Z-score (-0.3) The T-Scores on the most recent prior examination were: Lumbar Spine (L1-L4): There has been worsening of bone density since the previous examination. Left Femur Total: which represents a worsening of 3.1%. Right Femur Total: which represents a worsening of 5.8%. BD/Dexa Bone Density Study IMPRESSION: The patient is considered osteopenic as outlined below according to World Yemi Organization (WHO) criteria with a high fracture risk. There has been worsening of bone density since the previous examination. Reference Information: The T-score is the number of standard deviations above or below the standard which is normal for young adults at their peak bone mineral density. The World Health Organization (WHO) interprets the T-scores as follows: Above -1 Normal bone density Between -1 and -2.5 Osteopenia Equal to / or below -2.5 Osteoporosis As a practical clinical guideline, osteopenia may be graded as follows: Mild -1 through -1.5 Moderate -1.6 through -2.0 Severe -2.1 through -2.4 The Z-score is the number of standard deviations above or below age-matched controls. A Z-score of less than -1.5 would be considered abnormal. References: 1. NIH Osteoporosis and Related Bone Diseases www osteo.org 2. International Society for Clinical Densitometry www iscd.org 3. National Osteoporosis Foundation www nof.org Electronically Signed: Olegario Yang MD at 14:49 EDT ,
== END | disposition home or self-care (01) ==
LOC: OPBD 09:44
PROVIDERS: PCP Internal Medicine; Referring Provider Internal Medicine; Visit Provider Internal Medicine
DX: Z78.0 Asymptomatic menopausal state (principal); Z12.31 Encounter for screening mammogram for malignant neoplasm of breast
CPT/HCPCS: 77063; 77067; 77080

== ENCOUNTER → 2024-03-12 | Outpatient (CLI) | payer MEDICARE, OTHER, SELFPAY ==
--- NOTE | 2024-03-12 10:08 | BI_ITS ---
MAMMOGRAPHY - BILATERAL SCREENING REASON FOR EXAM: Female, 69 years old. Routine annual screening examination. PERTINENT HISTORY: Non-contributory. TECHNIQUE: Digital bilateral breast maurice (3D mammographic acquisition) in the CC and MLO projections. 2-D mediolateral oblique (MLO) and craniocaudad (CC) views of both breasts were obtained. CAD: Full Field Digital Mammography with Computer Added Detection was performed. COMPARISON: Comparison is made with prior study dated March 06, 2023 and January 15, 2022. FINDINGS: Breast Composition: The breasts are almost entirely fatty. There are no dominant masses or suspicious calcifications. Stable small left axillary lymph nodes. No other significant abnormalities are identified. There has been no significant change since the prior study. BI/SCRN MAMM (CAD)W/MAURICE BILAT IMPRESSION: Stable bilateral screening mammogram. Yearly follow-up mammogram recommended. (A) ASSESSMENT CATEGORY: BIRADS Category 2: Benign. A letter regarding these results will be sent to the patient by the facility within 30 days. Approximately 10% of breast cancers are not detected by mammography. A normal mammogram should not delay biopsy of a clinically suspicious abnormality. [id number] Electronically Signed: Olegario Yang MD at 12:10 EDT ,
== END | disposition home or self-care (01) ==
PROVIDERS: PCP Internal Medicine; Referring Provider Internal Medicine; Visit Provider Internal Medicine
DX: Z12.31 Encounter for screening mammogram for malignant neoplasm of breast (principal)
CPT/HCPCS: 77063; 77067

== ENCOUNTER → 2024-07-09 | Outpatient (CLI) | payer MEDICARE, OTHER, SELFPAY ==
[2024-07-09 14:36] LABS: (24 HR) Urine Calcium 137.2 mg/24 HR (42.0-353.0); 24HR UR TOTAL VOLUME 1400 ml; Calcium Urine pH Range 2; Urine Calcium (Random) 9.8 mg/dL (Not Estab.)
== END | disposition home or self-care (01) ==
LOC: LAB 07:46 → LABSPEC 07:47
PROVIDERS: PCP Internal Medicine; Referring Provider Internal Medicine Endocrinology, Diabetes & Metabolism; Visit Provider Internal Medicine Endocrinology, Diabetes & Metabolism
DX: E21.3 Hyperparathyroidism, unspecified (principal)
CPT/HCPCS: 81050; 82340

== ENCOUNTER → 2024-09-09 | Outpatient (CLI) | payer MEDICARE, OTHER, SELFPAY ==
[2024-09-09 13:31] LABS: Potassium 4.5 mmol/L (3.5-5.1)
== END | disposition home or self-care (01) ==
LOC: LABSPEC 12:04
PROVIDERS: PCP Internal Medicine; Referring Provider Internal Medicine; Visit Provider Internal Medicine
DX: E87.5 Hyperkalemia (principal)
CPT/HCPCS: 84132

== ENCOUNTER → 2025-03-15 | Outpatient (CLI) | payer MEDICARE, OTHER, SELFPAY ==
--- NOTE | 2025-03-15 10:22 | BD_ITS ---
PROCEDURE: DEXA BONE DENSITY STUDY 03/15/2025 REASON FOR EXAM: F, age 70 y/o . Postmenopausal. TECHNIQUE: DEXA BONE DENSITY STUDY COMPARISON: Prior study dated March 06, 2023. FINDINGS: BMD and T-SCORES Lumbar spine: 0.855 g/cm2, T-score -1.7 Levels: L1 through L4 Change from prior: Improvement of 0.9%. Left femoral neck: 0.541 g/cm2, T-score -2.8 Left total hip: 0.662 g/cm2, T-score -0.7 Change from prior: Loss of 2.9%. Right femoral neck: 0.604 g/cm2, T-score -2.2 Femoral neck comparison data not recommended for monitoring change. Right total hip: 0.662 g/cm2, T-score -2.3 Change from prior: Loss of 5.4%. The World Health Organization has defined the following categories based on bone density: Normal bone density: T-score equal to or greater than -1.0 Osteopenia: T-score between -1.0 and -2.5 Osteoporosis: T-score equal to or less than -2.5 The patient does meet the pharmacological treatment recommendations for prevention of osteoporosis. BD/Dexa Bone Density Study IMPRESSION: OSTEOPOROSIS. Recommend follow-up as clinically warranted. Reading Location: [id number]
--- NOTE | 2025-03-15 10:22 | BI_ITS ---
EXAM: SCRN MAMM (CAD)W/MAURICE BILAT DATE: 03/15/2025 CLINICAL HISTORY: F, Age 70 y/o , SCREENING MAMMOGRAM No family history. TECHNIQUE: SCRN MAMM (CAD)W/MAURICE BILAT COMPARISON: Prior exam(s) dated prior study dated March 12, 2024.. FINDINGS: TISSUE DENSITY: The breasts are almost entirely fatty. Bilateral Breast Mammographic Findings: No significant masses, calcifications or other abnormalities are identified. No suspicious masses, areas of developing architectural distortion, or suspicious calcifications. There has been no significant interval change. BI/SCRN MAMM (CAD)W/MAURICE BILAT IMPRESSION: Stable examination. OVERALL FINAL ASSESSMENT BI-RADS 1: NEGATIVE. RECOMMENDATION: Routine annual follow-up in 1 Year A letter with findings and recommendations will be mailed to the patient. Reading Location: [id number]
--- NOTE | 2025-03-15 10:22 | BI_ITS ---
EXAM: SCRN MAMM (CAD)W/MAURICE BILAT DATE: 03/15/2025 CLINICAL HISTORY: F, Age 70 y/o , SCREENING MAMMOGRAM No family history. TECHNIQUE: SCRN MAMM (CAD)W/MAURICE BILAT COMPARISON: Prior exam(s) dated prior study dated March 12, 2024.. FINDINGS: TISSUE DENSITY: The breasts are almost entirely fatty. Bilateral Breast Mammographic Findings: No significant masses, calcifications or other abnormalities are identified. No suspicious masses, areas of developing architectural distortion, or suspicious calcifications. There has been no significant interval change. BI/SCRN MAMM (CAD)W/MAURICE BILAT IMPRESSION: Stable examination. OVERALL FINAL ASSESSMENT BI-RADS 1: NEGATIVE. RECOMMENDATION: Routine annual follow-up in 1 Year A letter with findings and recommendations will be mailed to the patient. Reading Location: [id number]
--- NOTE | 2025-03-15 10:22 | BD_ITS ---
PROCEDURE: DEXA BONE DENSITY STUDY 03/15/2025 REASON FOR EXAM: F, age 70 y/o . Postmenopausal. TECHNIQUE: DEXA BONE DENSITY STUDY COMPARISON: Prior study dated March 06, 2023. FINDINGS: BMD and T-SCORES Lumbar spine: 0.855 g/cm2, T-score -1.7 Levels: L1 through L4 Change from prior: Improvement of 0.9%. Left femoral neck: 0.541 g/cm2, T-score -2.8 Left total hip: 0.662 g/cm2, T-score -0.7 Change from prior: Loss of 2.9%. Right femoral neck: 0.604 g/cm2, T-score -2.2 Femoral neck comparison data not recommended for monitoring change. Right total hip: 0.662 g/cm2, T-score -2.3 Change from prior: Loss of 5.4%. The World Health Organization has defined the following categories based on bone density: Normal bone density: T-score equal to or greater than -1.0 Osteopenia: T-score between -1.0 and -2.5 Osteoporosis: T-score equal to or less than -2.5 The patient does meet the pharmacological treatment recommendations for prevention of osteoporosis. BD/Dexa Bone Density Study IMPRESSION: OSTEOPOROSIS. Recommend follow-up as clinically warranted. Reading Location: [id number]
== END | disposition home or self-care (01) ==
LOC: OPBD 10:20
PROVIDERS: PCP Internal Medicine; Referring Provider Internal Medicine; Visit Provider Internal Medicine
DX: Z12.31 Encounter for screening mammogram for malignant neoplasm of breast (principal); M81.0 Age-related osteoporosis without current pathological fracture
CPT/HCPCS: 77063; 77067; 77080

== ENCOUNTER → 2025-05-03 | Outpatient (CLI) | payer MEDICARE, OTHER, SELFPAY ==
--- NOTE | 2025-05-03 08:42 | CDU_ITS ---
Reason For Study Reason For Study: Bilateral carotid stenosis Rt. Velocities/BP Lt. Velocities/BP Prox CCA 106/12.6 cm/sec. Prox CCA 113.8/11.5 cm/sec. Mid CCA 96.1/13.9 cm/sec. Mid CCA 79/15.1 cm/sec. Dist CCA 77.7/15.1 cm/sec. Dist CCA 74/16.3 cm/sec. Prox ICA 132.1/24.3 cm/sec. Prox ICA 71.6/17.6 cm/sec. Mid ICA 115.6/22.5 cm/sec. Mid ICA 101.1/26.2 cm/sec. Dist ICA 108.3/24.3 cm/sec. Dist ICA 90/15.1 cm/sec. Rt. ICA/CCA = 1.37. Lt. ICA/CCA = 1.28. Prox ECA 71.6/2.8 cm/sec. Prox ECA 99.8/7.7 cm/sec. Rt. Vert. 74/13.5 cm/sec. Lt. Vert. 58.6/8 cm/sec. Right Extracranial There is homogeneous, smooth atherosclerotic plaque noted in the right common carotid artery. There is heterogeneous, irregular atherosclerotic plaque noted in the right internal carotid artery. There is intimal thickening but no significant atherosclerotic plaque noted in the right external carotid artery. Antegrade flow is noted in the right vertebral artery. Left Extracranial There is homogeneous, smooth atherosclerotic plaque noted in the left common carotid artery. There is homogeneous, smooth atherosclerotic plaque noted in the left internal carotid artery. There is intimal thickening but no significant atherosclerotic plaque noted in the left external carotid artery. Antegrade flow is noted in the left vertebral artery. Procedure Carotid Duplex [id number]. This is a Carotid Duplex examination using B-mode, color flow and specral Doppler. Exam performed in department. VL/Carotid Duplex Ultrasound Interpretation Summary Mild (<50%) stenosis right extracranial internal carotid. Mild (<50%) stenosis left extracranial internal carotid. Flow within the vertebral arteries is antegrade bilaterally. Ordering Physician: Rajani Camara Referring Physician: Rajani Camara Performed By: Kalina Tomlinson RVT
== END | disposition home or self-care (01) ==
LOC: CVS 08:41
PROVIDERS: PCP Internal Medicine; Referring Provider Internal Medicine; Visit Provider Internal Medicine
DX: I65.23 Occlusion and stenosis of bilateral carotid arteries (principal)
CPT/HCPCS: 93880